=== PATIENT | male | born 1965 | race Two or more races ===

== ENCOUNTER → 2024-03-14 | Outpatient (CLI) | payer MEDICAID, SELFPAY ==
--- NOTE | 2024-03-14 10:26 | XR_ITS ---
Examination: PA lateral chest 2 views TECHNIQUE: Upright PA lateral chest 2 views Exam date and time: March 14, 2024 INDICATIONS: Clinical diagnosis tuberculosis FINDINGS: Interstitial parenchymal disease left base obscuring detail posterior portion left hemidiaphragm Right lung clear Normal heart size IMPRESSION: Tuberculosis cannot be excluded based on this chest x-ray, recommend CT chest without contrast follow-up
== END | disposition home or self-care (01) ==
DX: Z11.1 Encounter for screening for respiratory tuberculosis (principal)
CPT/HCPCS: 71046

== ENCOUNTER 2024-11-27 23:00 | Emergency (ER) | payer MEDICAID, SELFPAY ==
[2024-11-27 23:02] VITALS: BMI 25.0
[2024-11-27 23:16] VITALS: BP 134/68; PULSE 87; RESP 20; TEMP 37.3; O2SAT 95
--- NOTE | 2024-11-27 23:41 | XR_ITS ---
Examination: CT abdomen with intravenous contrast CT pelvis with intravenous contrast 2-D coronal reconstructions 2-D sagittal reconstructions Date and time of exam:November, 0356 hours INDICATIONS: Abdominal pain and bloating beginning 3 weeks ago.. CTDI: vol (mGy) 8.13. DLP: (mGycm) 525. Technique: Multiple axial sections of the abdomen and pelvis have been obtained. 64 slice high-resolution scanner used. 3 mm axial sections have been obtained, post intravenous injection 60 cc Isovue 370. 2-D sagittal, coronal reconstructions obtained. Low dose protocols were performed. One or more of the following dose reduction techniques were used; automated exposure control, adjustment of the mA and/or KV according to patient size, use of iterative reconstruction technique. Findings: Atelectasis in the right lower lung zone. Cirrhosis, liver nodular in contour Significant ascites. Prominent splenomegaly. Esophageal varices. Perigastric varices. Portosystemic collateral vessels medial to the spleen. There is extrahepatic biliary tract dilatation, common bile duct 12 mm No pancreatic mass. Atrophic kidneys, no hydronephrosis Aorta normal size. No bowel obstruction. No significant prostatomegaly. Degenerative changes lumbar spine Small umbilical hernia Fluid-containing right inguinal hernia IMPRESSION: Cirrhosis Esophageal and perigastric varices. Prominent ascites. Extrahepatic biliary duct dilatation, consider MRCP follow-up
--- NOTE | 2024-11-27 23:47 | PD.EDABDPN ---
ED Abdominal Pain RME/HPI General Chief Complaint: Abdominal Pain Stated complaint: BLOATED ABD PAIN Time seen by provider: 11/27/24 23:32 Arrival date/time: 11/27/24 23:00 59M with no known PMH (patient doesn't go to doctors and appears to be homeless) presents to ED with several weeks of worsening ab bloating. Mostly normal intake/output. 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 Limitations: no limitations Related Data Home Medications ?Medication ?Instructions ?Recorded ?Confirmed methadone 40 mg soluble tablet 68 mg PO QDAY 10/22/20 10/22/20 Allergies Allergy/AdvReac Type Severity Reaction Status Date / Time No Known Allergies Allergy Verified 11/27/24 23:09 Review of Systems Review of Systems Systems Reviewed: All systems reviewed, normal except as documented Constitutional Constitutional: Reports system reviewed and no additional complaints, except as documented, Denies fever(s) and Denies headache(s) ENT Ears, Nose, Mouth, and Throat: Denies disequilibrium and Denies headache(s) Cardiovascular Cardiovascular: Reports system reviewed and no additional complaints, except as documented, Denies chest pain and Denies dyspnea Respiratory Respiratory: Reports system reviewed and no additional complaints, except as documented, Denies cough and Denies dyspnea Gastrointestinal Gastrointestinal: Reports system reviewed and no additional complaints, except as documented, Reports as per HPI, Denies abdominal pain, Reports bloating, Denies nausea and Denies vomiting Neurologic Neurologic: Reports system reviewed and no additional complaints, except as documented, Denies confusion, Denies disequilibrium and Denies headache(s) Psychiatric Psychiatric: Denies confusion Past Medical History Past Medical History CARDIAC: Negative Congestive Heart Failure RESPIRATORY: Negative Chronic Obstructive Pulmonary Disease (COPD) GENITOURINARY: Negative Renal Disease ENDOCRINE: Negative Diabetes Mellitus Type 1 or Diabetes Mellitus Type 2 Social History SMOKING STATUS: Current every day smoker ED Exam General Limitations: Present no limitations General appearance: Present alert and in no apparent distress Head Head exam: Present atraumatic Eye Eye exam: Present normal appearance, PERRL and EOMI ENT ENT exam: Present normal exam, normal oropharynx and mucous membranes moist Neck Neck exam: Present normal inspection, full ROM and trachea midline Chest Chest inspection: Present normal inspection and symmetric chest wall rise Respiratory Respiratory exam: Present normal lung sounds bilaterally Cardiovascular Cardiovascular exam: Present regular rate, normal rhythm and normal heart sounds Abdominal Exam Abdominal exam: Present soft, distention and normal bowel sounds Extremities Exam Extremities exam: Present normal inspection and full ROM Back Exam Back exam: Present normal inspection and full ROM Neurological Exam Neurological exam: Present alert, oriented X3 and CN II-XII intact Psychiatric Psychiatric exam: Present normal affect and normal mood Skin Skin exam: Present warm, dry, intact and normal color Course Quality Measures none Orders Category Date Time Status CT Screening NOW Care 11/27/24 23:41 Completed Insert IV NOW Care 11/27/24 23:41 Completed MRI Screening NOW Care 11/28/24 05:[address] abdomen pelvis w con Stat Exams 11/27/24 23:41 Completed MR MRCP Stat Exams 11/28/24 Completed US paracentesis abd w/image Stat Exams 11/28/24 05:13 Completed Albumin, Peritoneal Fluid Routine Lab 11/28/24 14:34 Completed Alcohol, Blood Medical Stat Lab 11/27/24 23:41 Completed Amylase,Peritoneal Fluid Routine Lab 11/28/24 14:34 Completed CBC Stat Lab 11/27/24 23:41 Completed CMP [Comprehensive Metabolic Panel] Stat Lab 11/27/24 23:41 Completed Drug Screen,Urine Stat Lab 11/28/24 01:29 Completed Glucose,Peritoneal Fluid Routine Lab 11/28/24 14:34 Completed INR [Prothrombin Time with INR] Stat Lab 11/27/24 23:41 Completed LDH,Peritoneal Fluid Routine Lab 11/28/24 14:34 Completed Lactate (Lactic Acid) Stat Lab 11/27/24 23:50 Completed Lipase Stat Lab 11/27/24 23:41 Completed PLATELETS [Pheresis Platelets] Stat Lab 11/28/24 05:30 Completed PTT [Partial Thromboplastin Time] Stat Lab 11/27/24 23:41 Completed Path Review Blood Smear Stat Lab 11/28/24 01:00 Completed Peritoneal Cell Cnt/Diff Routine Lab 11/28/24 14:34 Completed Procalcitonin Stat Lab 11/27/24 23:41 Completed Protein Total,Peritoneal Fluid Routine Lab 11/28/24 14:34 Completed Type and Screen Stat Lab 11/28/24 05:30 Completed Albumin Human 25% Ivpb [Albuminar-25 Ivpb] Med 11/28/24 15:00 Discontinued 25 gm in 100 ml IV Q1H Lidocaine 1% Pf 30 ml [Xylocaine 1% Pf 30 ml] Med 11/28/24 12:28 Discontinued 30 ml .ROUTE .STK-MED ONE Vital Signs Vital signs: Vital Signs Temperature 99.1 F 11/27/24 23:16 Pulse Rate 87 11/27/24 23:16 Respiratory Rate 20 11/27/24 23:16 Blood Pressure 134/68 H 11/27/24 23:16 Pulse Oximetry (%) 95 11/27/24 23:16 Oxygen Delivery Method Room Air 11/27/24 23:16 O2 at 95% on RA and WNLs Abdominal Pain MDM MDM Narrative MDM Narrative:: 59M with no known PMH (patient doesn't go to doctors and appears to be homeless) presents to ED with several weeks of worsening ab bloating. Mostly normal intake/output. 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 Physical exam reveals ab bloating, but no obvious tenderness. Patient is afebrile, calm, and alert. CT reveals marked ascites and varices (no active bleeding), which enlarged CBD. No leukocytosis. Moderate anemia. Platelets 40 (1 unit given). Mildly elevated coags. CMP mild bili elevation. Lipase normal. Care signed out to Dr. Goetz pending MRCP and paracentesis. Eventually, patient got para, no stone in CBD, and subsequent albumin due to >8 L drained. Ascites liquid analyzed. Patient data External records reviewed:: [facility] previous records Clinical information provided by:: patient Social determinants that could affect healthcare access:: substance use Patient has the following chronic illnesses:: alcohol/drug How is presenting disease/condition affected by chronic disease/condition?: exacerbated by Evaluation data The following diagnostics were reviewed and interpreted by me:: lab results and radiology exam(s) Lab and/or radiology exams considered but not ordered:: ordered Interpretation Summary: above Medications / Prescriptions Medications or Prescriptions considered but not ordered:: irdered Medication administrations:: Medication Administration History Discontinued Medications Albumin Human (Albuminar-25 Ivpb) 25 gm in 100 mls @ 100 mls/hr IV Q1H JAYNE Stop: 11/28/24 16:59 Last Infusion: 11/28/24 17:50 Dose: Infused Documented By: Admin: 11/28/24 16:42 Dose: 100 mls/hr Documented By: Infusion: 11/28/24 16:41 Dose: Infused Documented By: Admin: 11/28/24 15:14 Dose: 100 mls/hr Documented By: AARON Lidocaine HCl (Lidocaine Inj Pf 1% 30 Ml Vial) Confirm Administered Dose 30 ml .ROUTE .STK-MED ONE Stop: 11/28/24 12:29 Last Admin: 11/28/24 15:19 Dose: Not Given Documented By: AARON Non-Admin Reason: Discontinued above Consultations Consultation(s) initiated? (list below): No Diagnosis Differential diagnosis abdominal pain: abdominal pain, acute appendicitis, calculus of kidney, constipation, diverticulitis, endometriosis, gastroenteritis, pancreatitis, small bowel obstruction and other (ascites and cirrhosis) Most likely diagnosis given after review of the tests above:: ascites and cirrhosis Admission Indicated Admission indicated?: not indicated Admission Request Was there a request for admission?: No Disposition Plan Disposition Plan: Discharge Discharge Attestation Discharge Attestation: The patient and all family members were given an opportunity to ask questions and understood the discharge instructions. Discharge instructions specifically effects, indications for sooner follow up or return to the emergency department, and the expected course of current diagnosis. Patient condition: Stable Discharge Plan Plan Patient Disposition: HOME (Self Care) Prescriptions/Referrals Prescriptions/Med Rec: No Action methadone 40 mg Tablet,Soluble 68 mg PO QDAY Referrals: No Primary/Family,Physician [Primary Care Provider] - In 1 week Problem List Clinical Impression: Liver cirrhosis, Abdominal ascites Patient/Caregiver Discharge Instructions Education Materials: Paracentesis, ED Ascites, ED Cirrhosis Additional Instructions: Follow up with your primary care doctor for further management of cirrhosis Print Language: Romansh Stand Alone Forms: Leandra Award Info., Patient Portal Info Letter
[2024-11-28] VITALS (13 sets, daily range): BP systolic 97–154; BP diastolic 43–91; PULSE 62–79; RESP 12–18; TEMP 36.3–37; O2SAT 96–100
--- NOTE | 2024-11-28 | XR_ITS ---
MRI abdomen, without contrast. MRCP Date and time of exam: November 28, 2024, 0737 hours INDICATIONS: Abdominal pain and distention this week, biliary tract dilatation on CT abdomen and pelvis November 28, 2024 Technique: Multiple axial and coronal images of the abdomen have been obtained with the Siemens 1.5T MRI scanner. Images obtained included T1 weighted transverse images, T2-weighted transverse images, T2-weighted transverse images fat-suppressed, T2 weighted haste fat suppressed transverse images, T1 weighted images, in and out of phase images, T2-weighted coronal images, breath hold, T2 weighted haze coronal images as well as T2 weighted coronal thick slab images, MRCP. Findings: Cirrhosis, liver lobular in contour Marked ascites Prominent splenomegaly Contracted gallbladder Enlarged common hepatic common bile duct 8 mm No definite extrahepatic stones No hydronephrosis Aorta normal size. Impression : Cirrhosis, significant splenomegaly Marked ascites Enlarged common bile duct 8 mm no definite common hepatic or common bile duct stones
[2024-11-28 01:07] LABS: Lactate (Lactic Acid) 1.4 mMol/L (0.4-2.0)
[2024-11-28 01:10] LABS: Basophils # (Auto) 0.0 Thou/mm3 (0.0-0.2); Basophils % (Auto) 1 % (0-2.5); Eosinophils # (Auto) 0.2 Thou/mm3 (0.0-0.5); Eosinophils % (Auto) 4 % (0-10); Hematocrit 30.7 % (41.0-53.0); Hemoglobin 9.7 g/dL (13.5-16.0); Immature Granulocytes Auto 0.01 Thou/mm3 (0.00-0.00); Lymphocytes # (Auto) 0.7 Thou/mm3 (1.0-4.8); Lymphocytes % (Auto) 15 % (10-50); Mean Corpuscular HGB Conc 31.6 g/dl (31.0-37.0); Mean Corpuscular Hemoglobin 26.6 pg (25.0-35.0); Mean Corpuscular Volume 84 fL (80-100); Monocytes # (Auto) 0.3 Thou/mm3 (0.0-0.8); Monocytes % (Auto) 7 % (0-12); Neutrophils # (Auto) 3.4 Thou/mm3 (1.8-7.7); Neutrophils % (Auto) 73 % (37-80); Nucleated Red Blood Cell # 0.00 Thou/mm3 (0.00-0.00); Nucleated Red Blood Cell % 0 /100 WBC (0); RDW Standard Deviation 61.2 fL (35.1-43.9); Red Blood Count 3.65 Miln/mm3 (4.50-5.90); White Blood Count 4.7 Thou/mm3 (3.8-10.6)
[2024-11-28 01:16] LABS: Platelet Count 40 Thou/mm3 (140-440)
[2024-11-28 01:17] LABS: Slide Review Platelets confirmed
[2024-11-28 01:28] LABS: INR 1.3 (0.9-1.3); Partial Thromboplastin Time 24.2 Seconds (22.0-36.0); Prothrombin Time 13.6 Seconds (9.0-12.2)
[2024-11-28 01:48] LABS: Alanine Aminotransferase 16 U/L (10-49); Albumin, Serum 3.2 gm/dL (3.4-4.8); Albumin/Globulin Ratio 0.9 (1.2-2.2); Alcohol, Blood Medical < 3.0 mg/dL (0-10.0); Alkaline Phosphatase 67 U/L (46-116); Anion Gap 6 (7-16); Aspartate Amino Transferase 43 U/L (0-34); BUN/Creatinine Ratio 15 Ratio (12-20); Bilirubin,Total 1.7 mg/dL (0.3-1.2); Blood Urea Nitrogen 15 mg/dL (9-23); Calcium 8.3 mg/dL (8.3-10.6); Calcium (Corrected) 8.9 mg/dL (8.5-10.1); Carbon Dioxide 25.8 mMol/L (20.0-31.0); Chloride 106 mMol/L (98-107); Creatinine (Component) 1.0 mg/dL (0.6-1.3); Estimated Creatinine Clearance 68.3 mL/min (>60); Globulin 3.7 gm/dL (2.3-3.5); Glucose 124 mg/dL (74-106); Lipase 25 U/L (12-53); Osmolality,Calculated 277 (275-295); Potassium 4.2 mMol/L (3.4-5.1); Procalcitonin 0.08 ng/ml (0.0-0.49); Sodium 138 mMol/L (136-145); Total Protein 6.9 gm/dL (5.7-8.2); eGFR > 60 See Note
[2024-11-28 03:00] LABS: Amphetamine/Methamp Scrn,U Negative (Negative); Barbiturate Screen,Urine Negative (Negative); Benzodiazepines Screen,Urine Negative (Negative); Benzoylecgonine Screen, Ur Negative (Negative); Fentanyl Screen,Urine Negative (Negative); Opiate Screen,Urine Positive (Negative); THC Screen,Urine Negative (Negative)
[2024-11-28 04:39] LABS: Path Review Blood Smear Sent to Pathologist
--- NOTE | 2024-11-28 05:09 | PRELIM_ITS ---
CT scan of the abdomen and pelvis with intravenous contrast (axial sections with sagittal and coronal reformats) November 28, 2024 0356 hours Clinical History: Abdominal bloating. Comparison: No prior study is available for comparison. Findings: Lung bases:- Unremarkable. Liver:- The liver demonstrates a nodular contour, which may represent cirrhosis. Multiple portosystemic collaterals are seen in the upper abdomen and gastroesophageal region. Gallbladder/Biliary system:- Gallbladder is distended.Mild intra and extrahepatic biliary ductal dilatation. The common bile duct measuresup to 14 mm in maximum caliber. Spleen:- The spleen is moderately enlarged, measuring 19 cm. Pancreas:- Unremarkable. Adrenals:- Unremarkable. Kidneys/Urinary bladder:- Unremarkable. Bowel:- Unremarkable. Mesentery/Peritoneum:- There is marked ascites. Aorta:- Unremarkable. Retroperitoneum:- Unremarkable. Pelvis:- Unremarkable. Osseous Structures:- Degenerative changes are identified in the spine. There is osteopenia. Abdominal wall:- A small fat-containing umbilical hernia is present. There is anasarca. Impression: 1. Cirrhosis of the liver with portal hypertension and marked ascites. 2. Mild intra and extrahepatic biliary ductal dilatation. Suggest clinical correlation and further evaluation with sonography or MRCP, if clinically indicated. 3. Other findings as described above. Report Electronically Signed By: Teresita Rosario 11/28/2024 5:09:26 AM [EST]
--- NOTE | 2024-11-28 05:13 | XR_ITS ---
Examination: Ultrasound-guided paracentesis Abdominal sonogram limited Date and time of exam: November 28, 2024 1235 hours INDICATIONS: Cirrhosis increasing ascites and abdominal distention this week Informed consent provided. A timeout was completed verifying correct patient, procedure, site, positioning, and special adequate movement if applicable. Technique: Multiple sonographic images of the abdomen have been obtained. Appropriate area for paracentesis was marked. Local anesthesia is obtained with 1% lidocaine. Yueh catheter is successfully introduced. Findings: Abdominal sonographic images demonstrate sufficient ascitic fluid for paracentesis. After placing the Yueh catheter, 8125 cc of fluid were successfully removed. During and after completion of the procedure the patient appear in satisfactory and stable condition with no complications observed. Estimated blood loss 0 cc Impression: Abdominal ascites Successful ultrasound-guided paracentesis as described above
--- NOTE | 2024-11-28 05:40 | PC.NURSE ---
THIS RN RECEIVED PATIENT AT HANDOFF WITH AN INFILTRATED IV TO THE LEFT BICEP. HANDOFF RN AT BEDSIDE ATTEMPTING NEW ULTRASOUND GUIDED IV ON RIGHT BICEP. PATIENT DENYING ANY PAIN OR DISCOMFORT.
--- NOTE | 2024-11-28 06:27 | PD.EDADDENDU ---
Emergency Room Addendum <Lanette Saunders - Last Filed: 11/29/24 10:04> Addendum Narrative: 0600: Care assumed from Dr. Prieto, the previous shift emergency physician. Past medical, surgical, social and family history reviewed. Vitals and home medications reviewed. I will assume the care of the patient at this time, pending MRCP, US paracentesis, and final disposition. Please refer to the emergency department record for history and examination from initial visit.? Physical exam by me shows patient under no acute distress at this time. Patient had ultrasound guided paracentesis. >8L ascitic fluid removed. Albumin IV ordered. Fluid studies ordered Peritoneal fluid: Peritoneal Color Yellow 11/28/24 14:34 Peritoneal Appearance Hazy 11/28/24 14:34 Peritoneal WBC 286 /cmm 11/28/24 14:34 Peritoneal [place] 48282 /cmm 11/28/24 14:34 Periton Polynucl WBCs 5 % 11/28/24 14:34 Periton Mononucl WBCs 95 % 11/28/24 14:34 Peritoneal Tot Protein < 2 g/dL 11/28/24 14:34 Peritoneal Albumin < 1.0 gm/dL 11/28/24 14:34 Peritoneal LDH 57 IU/L 11/28/24 14:34 Peritoneal Glucose 113 mg/dL 11/28/24 14:34 Peritoneal Amylase < 20 IU/L 11/28/24 14:34 Findings consistent with transudate (protein <2 g/dL). Serum albumin ascites gradient >1.1 consistent with cirrhosis. WBC<300 interpreted as within normal limits. Patient states he has a new PCP and plans to go directly to the clinic to make his follow up appointment. 1645: Patient will be discharged. Diagnoses: - Liver cirrhosis - Abdominal ascites <Lolly Goetz MD - Last Filed: 11/28/24 16:50> Addendum Narrative: 0600: Care assumed from Dr. Prieto, the previous shift emergency physician. Past medical, surgical, social and family history reviewed. Vitals and home medications reviewed. I will assume the care of the patient at this time, pending MRCP, US paracentesis, and final disposition. Please refer to the emergency department record for history and examination from initial visit.? Physical exam by me shows patient under no acute distress at this time. Patient had ultrasound guided paracentesis. >8L ascitic fluid removed. Albumin IV ordered. Fluid studies ordered Peritoneal fluid: Peritoneal Color Yellow 11/28/24 14:34 Peritoneal Appearance Hazy 11/28/24 14:34 Peritoneal WBC 286 /cmm 11/28/24 14:34 [place]itoneal [place] 80821 /cmm 11/28/24 14:34 Periton Polynucl WBCs 5 % 11/28/24 14:34 Periton Mononucl WBCs 95 % 11/28/24 14:34 Peritoneal Tot Protein < 2 g/dL 11/28/24 14:34 Peritoneal Albumin < 1.0 gm/dL 11/28/24 14:34 Peritoneal LDH 57 IU/L 11/28/24 14:34 Peritoneal Glucose 113 mg/dL 11/28/24 14:34 Peritoneal Amylase < 20 IU/L 11/28/24 14:34 Findings consistent with transudate (protein <2 g/dL). Serum albumin ascites gradient >1.1 consistent with cirrhosis. WBC<300 interpreted as within normal limits. Patient states he has a new PCP and plans to go directly to the clinic to make his follow up appointment. Results <Lanettekita Saunders - Last Filed: 11/29/24 10:04> Objective Laboratory: Laboratory Last Values WBC 4.7 Thou/mm3 (3.8-10.6) 11/28/24 01:00 RBC 3.65 Miln/mm3 (4.50-5.90) L 11/28/24 01:00 Hgb 9.7 g/dL (13.5-16.0) L 11/28/24 01:00 Hct 30.7 % (41.0-53.0) L 11/28/24 01:00 MCV 84 fL (80-100) 11/28/24 01:00 MCH 26.6 pg (25.0-35.0) 11/28/24 01:00 MCHC 31.6 g/dl (31.0-37.0) 11/28/24 01:00 RDW Std Deviation 61.2 fL (35.1-43.9) H 11/28/24 01:00 Plt Count 40 Thou/mm3 (140-440) L 11/28/24 01:00 Neut % (Auto) 73 % (37-80) 11/28/24 01:00 Lymph % (Auto) 15 % (10-50) 11/28/24 01:00 Esmeralda % (Auto) 7 % (0-12) 11/28/24 01:00 Eos % (Auto) 4 % (0-10) 11/28/24 01:00 Baso % (Auto) 1 % (0-2.5) 11/28/24 01:00 Neut # (Auto) 3.4 Thou/mm3 (1.8-7.7) 11/28/24 01:00 Lymph # (Auto) 0.7 Thou/mm3 (1.0-4.8) L 11/28/24 01:00 Esmeralda # (Auto) 0.3 Thou/mm3 (0.0-0.8) 11/28/24 01:00 Eos # (Auto) 0.2 Thou/mm3 (0.0-0.5) 11/28/24 01:00 Baso # (Auto) 0.0 Thou/mm3 (0.0-0.2) 11/28/24 01:00 Immature Gran # (Auto) 0.01 Thou/mm3 (0.00-0.00) H 11/28/24 01:00 Absolute Nucleated RBC 0.00 Thou/mm3 (0.00-0.00) 11/28/24 01:00 Immature Gran % 0 % (0-0) 11/28/24 01:00 Nucleated RBC % 0 /100 WBC (0) 11/28/24 01:00 Smear Path Review Sent to Pathologist 11/28/24 01:00 PT 13.6 Seconds (9.0-12.2) H 11/28/24 01:00 INR 1.3 (0.9-1.3) 11/28/24 01:00 APTT 24.2 Seconds (22.0-36.0) 11/28/24 01:00 Sodium 138 mMol/L (136-145) 11/28/24 01:00 Potassium 4.2 mMol/L (3.4-5.1) 11/28/24 01:00 Chloride 106 mMol/L (98-107) 11/28/24 01:00 Carbon Dioxide 25.8 mMol/L (20.0-31.0) 11/28/24 01:00 Anion Gap 6 (7-16) L 11/28/24 01:00 BUN 15 mg/dL (9-23) 11/28/24 01:00 Creatinine 1.0 mg/dL (0.6-1.3) 11/28/24 01:00 Estim Creat Clear Calc 68.3 mL/min (>60) 11/28/24 01:00 eGFR > 60 See Note (60-) 11/28/24 01:00 BUN/Creatinine Ratio 15 Ratio (12-20) 11/28/24 01:00 Glucose 124 mg/dL (74-106) H 11/28/24 01:00 Calculated Osmolality 277 (275-295) 11/28/24 01:00 Lactic Acid 1.4 mMol/L (0.4-2.0) 11/28/24 01:00 Calcium 8.3 mg/dL (8.3-10.6) 11/28/24 01:00 Corrected Calcium 8.9 mg/dL (8.5-10.1) 11/28/24 01:00 Total Bilirubin 1.7 mg/dL (0.3-1.2) H 11/28/24 01:00 AST 43 U/L (0-34) H 11/28/24 01:00 ALT 16 U/L (10-49) 11/28/24 01:00 Alkaline Phosphatase 67 U/L (46-116) 11/28/24 01:00 Total Protein 6.9 gm/dL (5.7-8.2) 11/28/24 01:00 Albumin 3.2 gm/dL (3.4-4.8) L 11/28/24 01:00 Globulin 3.7 gm/dL (2.3-3.5) H 11/28/24 01:00 Albumin/Globulin Ratio 0.9 (1.2-2.2) L 11/28/24 01:00 Lipase 25 U/L (12-53) 11/28/24 01:00 Procalcitonin 0.08 ng/ml (0.0-0.49) 11/28/24 01:00 Urine Opiates Screen Positive (Negative) A 11/28/24 01:29 Urine Fentanyl Screen Negative (Negative) 11/28/24 01:29 Ur Barbiturates Screen Negative (Negative) 11/28/24 01:29 U Amphetamin/Meth Scrn Negative (Negative) 11/28/24 01:29 U Benzodiazepines Scrn Negative (Negative) 11/28/24 01:29 U Cocaine Metab Screen Negative (Negative) 11/28/24 01:29 U Marijuana (THC) Screen Negative (Negative) 11/28/24 01:29 Ethyl Alcohol < 3.0 mg/dL (0-10.0) 11/28/24 01:00 Misc Test Result Platelets confirmed 11/28/24 01:00 Blood Type O Positive 11/28/24 05:30 Antibody Screen NEGATIVE 11/28/24 05:30 Blood Bank Wristband ID Yes 11/28/24 05:30 Blood Bank Comment PLATP Ready 11/28/24 05:30 Imaging: Procedure(s): MR MRCP Accession Number(s): [id number] cc: Alexx Yates MD; NO PRIMARY/FAMILY,PHYSICIAN; Pankaj Ochoa PA-C~ MRI abdomen, without contrast. MRCP Date and time of exam: November 28, 2024, 0737 hours INDICATIONS: Abdominal pain and distention this week, biliary tract dilatation on CT abdomen and pelvis November 28, 2024 Technique: Multiple axial and coronal images of the abdomen have been obtained with the Siemens 1.5T MRI scanner. Images obtained included T1 weighted transverse images, T2-weighted transverse images, T2-weighted transverse images fat-suppressed, T2 weighted haste fat suppressed transverse images, T1 weighted images, in and out of phase images, T2-weighted coronal images, breath hold, T2 weighted haze coronal images as well as T2 weighted coronal thick slab images, MRCP. Findings: Cirrhosis, liver lobular in contour Marked ascites Prominent splenomegaly Contracted gallbladder Enlarged common hepatic common bile duct 8 mm No definite extrahepatic stones No hydronephrosis Aorta normal size. Impression : Cirrhosis, significant splenomegaly Marked ascites Enlarged common bile duct 8 mm no definite common hepatic or common bile duct stones Dictated By: Alexx Yates MD <Lolly Goetz MD - Last Filed: 11/28/24 16:50> Objective Laboratory: Laboratory Last Values WBC 4.7 Thou/mm3 (3.8-10.6) 11/28/24 01:00 RBC 3.65 Miln/mm3 (4.50-5.90) L 11/28/24 01:00 Hgb 9.7 g/dL (13.5-16.0) L 11/28/24 01:00 Hct 30.7 % (41.0-53.0) L 11/28/24 01:00 MCV 84 fL (80-100) 11/28/24 01:00 MCH 26.6 pg (25.0-35.0) 11/28/24 01:00 MCHC 31.6 g/dl (31.0-37.0) 11/28/24 01:00 RDW Std Deviation 61.2 fL (35.1-43.9) H 11/28/24 01:00 Plt Count 40 Thou/mm3 (140-440) L 11/28/24 01:00 Neut % (Auto) 73 % (37-80) 11/28/24 01:00 Lymph % (Auto) 15 % (10-50) 11/28/24 01:00 Esmeralda % (Auto) 7 % (0-12) 11/28/24 01:00 Eos % (Auto) 4 % (0-10) 11/28/24 01:00 Baso % (Auto) 1 % (0-2.5) 11/28/24 01:00 Neut # (Auto) 3.4 Thou/mm3 (1.8-7.7) 11/28/24 01:00 Lymph # (Auto) 0.7 Thou/mm3 (1.0-4.8) L 11/28/24 01:00 Esmeralda # (Auto) 0.3 Thou/mm3 (0.0-0.8) 11/28/24 01:00 Eos # (Auto) 0.2 Thou/mm3 (0.0-0.5) 11/28/24 01:00 Baso # (Auto) 0.0 Thou/mm3 (0.0-0.2) 11/28/24 01:00 Immature Gran # (Auto) 0.01 Thou/mm3 (0.00-0.00) H 11/28/24 01:00 Absolute Nucleated RBC 0.00 Thou/mm3 (0.00-0.00) 11/28/24 01:00 Immature Gran % 0 % (0-0) 11/28/24 01:00 Nucleated RBC % 0 /100 WBC (0) 11/28/24 01:00 Smear Path Review Sent to Pathologist 11/28/24 01:00 PT 13.6 Seconds (9.0-12.2) H 11/28/24 01:00 INR 1.3 (0.9-1.3) 11/28/24 01:00 APTT 24.2 Seconds (22.0-36.0) 11/28/24 01:00 Sodium 138 mMol/L (136-145) 11/28/24 01:00 Potassium 4.2 mMol/L (3.4-5.1) 11/28/24 01:00 Chloride 106 mMol/L (98-107) 11/28/24 01:00 Carbon Dioxide 25.8 mMol/L (20.0-31.0) 11/28/24 01:00 Anion Gap 6 (7-16) L 11/28/24 01:00 BUN 15 mg/dL (9-23) 11/28/24 01:00 Creatinine 1.0 mg/dL (0.6-1.3) 11/28/24 01:00 Estim Creat Clear Calc 68.3 mL/min (>60) 11/28/24 01:00 eGFR > 60 See Note (60-) 11/28/24 01:00 BUN/Creatinine Ratio 15 Ratio (12-20) 11/28/24 01:00 Glucose 124 mg/dL (74-106) H 11/28/24 01:00 Calculated Osmolality 277 (275-295) 11/28/24 01:00 Lactic Acid 1.4 mMol/L (0.4-2.0) 11/28/24 01:00 Calcium 8.3 mg/dL (8.3-10.6) 11/28/24 01:00 Corrected Calcium 8.9 mg/dL (8.5-10.1) 11/28/24 01:00 Total Bilirubin 1.7 mg/dL (0.3-1.2) H 11/28/24 01:00 AST 43 U/L (0-34) H 11/28/24 01:00 ALT 16 U/L (10-49) 11/28/24 01:00 Alkaline Phosphatase 67 U/L (46-116) 11/28/24 01:00 Total Protein 6.9 gm/dL (5.7-8.2) 11/28/24 01:00 Albumin 3.2 gm/dL (3.4-4.8) L 11/28/24 01:00 Globulin 3.7 gm/dL (2.3-3.5) H 11/28/24 01:00 Albumin/Globulin Ratio 0.9 (1.2-2.2) L 11/28/24 01:00 Lipase 25 U/L (12-53) 11/28/24 01:00 Procalcitonin 0.08 ng/ml (0.0-0.49) 11/28/24 01:00 Urine Opiates Screen Positive (Negative) A 11/28/24 01:29 Urine Fentanyl Screen Negative (Negative) 11/28/24 01:29 Ur Barbiturates Screen Negative (Negative) 11/28/24 01:29 U Amphetamin/Meth Scrn Negative (Negative) 11/28/24 01:29 U Benzodiazepines Scrn Negative (Negative) 11/28/24 01:29 U Cocaine Metab Screen Negative (Negative) 11/28/24 01:29 U Marijuana (THC) Screen Negative (Negative) 11/28/24 01:29 Ethyl Alcohol < 3.0 mg/dL (0-10.0) 11/28/24 01:00 Misc Test Result Platelets confirmed 11/28/24 01:00 Blood Type O Positive 11/28/24 05:30 Antibody Screen NEGATIVE 11/28/24 05:30 Blood Bank Wristband ID Yes 11/28/24 05:30 Blood Bank Comment PLATP Ready 11/28/24 05:30 LTC - Results <Lanette Saunders - Last Filed: 11/29/24 10:04> Labs Labs: Laboratory Last Values WBC 4.7 Thou/mm3 (3.8-10.6) 11/28/24 01:00 RBC 3.65 Miln/mm3 (4.50-5.90) L 11/28/24 01:00 Hgb 9.7 g/dL (13.5-16.0) L 11/28/24 01:00 Hct 30.7 % (41.0-53.0) L 11/28/24 01:00 MCV 84 fL (80-100) 11/28/24 01:00 MCH 26.6 pg (25.0-35.0) 11/28/24 01:00 MCHC 31.6 g/dl (31.0-37.0) 11/28/24 01:00 RDW Std Deviation 61.2 fL (35.1-43.9) H 11/28/24 01:00 Plt Count 40 Thou/mm3 (140-440) L 11/28/24 01:00 Neut % (Auto) 73 % (37-80) 11/28/24 01:00 Lymph % (Auto) 15 % (10-50) 11/28/24 01:00 Esmeralda % (Auto) 7 % (0-12) 11/28/24 01:00 Eos % (Auto) 4 % (0-10) 11/28/24 01:00 Baso % (Auto) 1 % (0-2.5) 11/28/24 01:00 Neut # (Auto) 3.4 Thou/mm3 (1.8-7.7) 11/28/24 01:00 Lymph # (Auto) 0.7 Thou/mm3 (1.0-4.8) L 11/28/24 01:00 Esmeralda # (Auto) 0.3 Thou/mm3 (0.0-0.8) 11/28/24 01:00 Eos # (Auto) 0.2 Thou/mm3 (0.0-0.5) 11/28/24 01:00 Baso # (Auto) 0.0 Thou/mm3 (0.0-0.2) 11/28/24 01:00 Immature Gran # (Auto) 0.01 Thou/mm3 (0.00-0.00) H 11/28/24 01:00 Absolute Nucleated RBC 0.00 Thou/mm3 (0.00-0.00) 11/28/24 01:00 Immature Gran % 0 % (0-0) 11/28/24 01:00 Nucleated RBC % 0 /100 WBC (0) 11/28/24 01:00 Smear Path Review Sent to Pathologist 11/28/24 01:00 PT 13.6 Seconds (9.0-12.2) H 11/28/24 01:00 INR 1.3 (0.9-1.3) 11/28/24 01:00 APTT 24.2 Seconds (22.0-36.0) 11/28/24 01:00 Sodium 138 mMol/L (136-145) 11/28/24 01:00 Potassium 4.2 mMol/L (3.4-5.1) 11/28/24 01:00 Chloride 106 mMol/L (98-107) 11/28/24 01:00 Carbon Dioxide 25.8 mMol/L (20.0-31.0) 11/28/24 01:00 Anion Gap 6 (7-16) L 11/28/24 01:00 BUN 15 mg/dL (9-23) 11/28/24 01:00 Creatinine 1.0 mg/dL (0.6-1.3) 11/28/24 01:00 Estim Creat Clear Calc 68.3 mL/min (>60) 11/28/24 01:00 eGFR > 60 See Note (60-) 11/28/24 01:00 BUN/Creatinine Ratio 15 Ratio (12-20) 11/28/24 01:00 Glucose 124 mg/dL (74-106) H 11/28/24 01:00 Calculated Osmolality 277 (275-295) 11/28/24 01:00 Lactic Acid 1.4 mMol/L (0.4-2.0) 11/28/24 01:00 Calcium 8.3 mg/dL (8.3-10.6) 11/28/24 01:00 Corrected Calcium 8.9 mg/dL (8.5-10.1) 11/28/24 01:00 Total Bilirubin 1.7 mg/dL (0.3-1.2) H 11/28/24 01:00 AST 43 U/L (0-34) H 11/28/24 01:00 ALT 16 U/L (10-49) 11/28/24 01:00 Alkaline Phosphatase 67 U/L (46-116) 11/28/24 01:00 Total Protein 6.9 gm/dL (5.7-8.2) 11/28/24 01:00 Albumin 3.2 gm/dL (3.4-4.8) L 11/28/24 01:00 Globulin 3.7 gm/dL (2.3-3.5) H 11/28/24 01:00 Albumin/Globulin Ratio 0.9 (1.2-2.2) L 11/28/24 01:00 Lipase 25 U/L (12-53) 11/28/24 01:00 Procalcitonin 0.08 ng/ml (0.0-0.49) 11/28/24 01:00 Peritoneal Color Yellow 11/28/24 14:34 Peritoneal Appearance Hazy 11/28/24 14:34 Peritoneal WBC 286 /cmm 11/28/24 14:34 Peritoneal RBC 38022 /cmm 11/28/24 14:34 Periton Polynucl WBCs 5 % 11/28/24 14:34 Periton Mononucl WBCs 95 % 11/28/24 14:34 Peritoneal Tot Protein < 2 g/dL 11/28/24 14:34 Peritoneal Albumin < 1.0 gm/dL 11/28/24 14:34 Peritoneal LDH 57 IU/L 11/28/24 14:34 Peritoneal Glucose 113 mg/dL 11/28/24 14:34 Peritoneal Amylase < 20 IU/L 11/28/24 14:34 Urine Opiates Screen Positive (Negative) A 11/28/24 01:29 Urine Fentanyl Screen Negative (Negative) 11/28/24 01:29 Ur Barbiturates Screen Negative (Negative) 11/28/24 01:29 U Amphetamin/Meth Scrn Negative (Negative) 11/28/24 01:29 U Benzodiazepines Scrn Negative (Negative) 11/28/24 01:29 U Cocaine Metab Screen Negative (Negative) 11/28/24 01:29 U Marijuana (THC) Screen Negative (Negative) 11/28/24 01:29 Ethyl Alcohol < 3.0 mg/dL (0-10.0) 11/28/24 01:00 Misc Test Result Platelets confirmed 11/28/24 01:00 Blood Type O Positive 11/28/24 05:30 Antibody Screen NEGATIVE 11/28/24 05:30 Blood Bank Wristband ID Yes 11/28/24 05:30 Blood Bank Comment PLATP Ready 11/28/24 05:30 <Lolly Goetz MD - Last Filed: 11/28/24 16:50> Labs Labs: Laboratory Last Values WBC 4.7 Thou/mm3 (3.8-10.6) 11/28/24 01:00 RBC 3.65 Miln/mm3 (4.50-5.90) L 11/28/24 01:00 Hgb 9.7 g/dL (13.5-16.0) L 11/28/24 01:00 Hct 30.7 % (41.0-53.0) L 11/28/24 01:00 MCV 84 fL (80-100) 11/28/24 01:00 MCH 26.6 pg (25.0-35.0) 11/28/24 01:00 MCHC 31.6 g/dl (31.0-37.0) 11/28/24 01:00 RDW Std Deviation 61.2 fL (35.1-43.9) H 11/28/24 01:00 Plt Count 40 Thou/mm3 (140-440) L 11/28/24 01:00 Neut % (Auto) 73 % (37-80) 11/28/24 01:00 Lymph % (Auto) 15 % (10-50) 11/28/24 01:00 Esmeralda % (Auto) 7 % (0-12) 11/28/24 01:00 Eos % (Auto) 4 % (0-10) 11/28/24 01:00 Baso % (Auto) 1 % (0-2.5) 11/28/24 01:00 Neut # (Auto) 3.4 Thou/mm3 (1.8-7.7) 11/28/24 01:00 Lymph # (Auto) 0.7 Thou/mm3 (1.0-4.8) L 11/28/24 01:00 Esmeralda # (Auto) 0.3 Thou/mm3 (0.0-0.8) 11/28/24 01:00 Eos # (Auto) 0.2 Thou/mm3 (0.0-0.5) 11/28/24 01:00 Baso # (Auto) 0.0 Thou/mm3 (0.0-0.2) 11/28/24 01:00 Immature Gran # (Auto) 0.01 Thou/mm3 (0.00-0.00) H 11/28/24 01:00 Absolute Nucleated RBC 0.00 Thou/mm3 (0.00-0.00) 11/28/24 01:00 Immature Gran % 0 % (0-0) 11/28/24 01:00 Nucleated RBC % 0 /100 WBC (0) 11/28/24 01:00 Smear Path Review Sent to Pathologist 11/28/24 01:00 PT 13.6 Seconds (9.0-12.2) H 11/28/24 01:00 INR 1.3 (0.9-1.3) 11/28/24 01:00 APTT 24.2 Seconds (22.0-36.0) 11/28/24 01:00 Sodium 138 mMol/L (136-145) 11/28/24 01:00 Potassium 4.2 mMol/L (3.4-5.1) 11/28/24 01:00 Chloride 106 mMol/L (98-107) 11/28/24 01:00 Carbon Dioxide 25.8 mMol/L (20.0-31.0) 11/28/24 01:00 Anion Gap 6 (7-16) L 11/28/24 01:00 BUN 15 mg/dL (9-23) 11/28/24 01:00 Creatinine 1.0 mg/dL (0.6-1.3) 11/28/24 01:00 Estim Creat Clear Calc 68.3 mL/min (>60) 11/28/24 01:00 eGFR > 60 See Note (60-) 11/28/24 01:00 BUN/Creatinine Ratio 15 Ratio (12-20) 11/28/24 01:00 Glucose 124 mg/dL (74-106) H 11/28/24 01:00 Calculated Osmolality 277 (275-295) 11/28/24 01:00 Lactic Acid 1.4 mMol/L (0.4-2.0) 11/28/24 01:00 Calcium 8.3 mg/dL (8.3-10.6) 11/28/24 01:00 Corrected Calcium 8.9 mg/dL (8.5-10.1) 11/28/24 01:00 Total Bilirubin 1.7 mg/dL (0.3-1.2) H 11/28/24 01:00 AST 43 U/L (0-34) H 11/28/24 01:00 ALT 16 U/L (10-49) 11/28/24 01:00 Alkaline Phosphatase 67 U/L (46-116) 11/28/24 01:00 Total Protein 6.9 gm/dL (5.7-8.2) 11/28/24 01:00 Albumin 3.2 gm/dL (3.4-4.8) L 11/28/24 01:00 Globulin 3.7 gm/dL (2.3-3.5) H 11/28/24 01:00 Albumin/Globulin Ratio 0.9 (1.2-2.2) L 11/28/24 01:00 Lipase 25 U/L (12-53) 11/28/24 01:00 Procalcitonin 0.08 ng/ml (0.0-0.49) 11/28/24 01:00 Peritoneal Color Yellow 11/28/24 14:34 Peritoneal Appearance Hazy 11/28/24 14:34 Peritoneal WBC 286 /cmm 11/28/24 14:34 Peritoneal RBC 29951 /cmm 11/28/24 14:34 Periton Polynucl WBCs 5 % 11/28/24 14:34 Periton Mononucl WBCs 95 % 11/28/24 14:34 Peritoneal Tot Protein < 2 g/dL 11/28/24 14:34 Peritoneal Albumin < 1.0 gm/dL 11/28/24 14:34 Peritoneal LDH 57 IU/L 11/28/24 14:34 Peritoneal Glucose 113 mg/dL 11/28/24 14:34 Peritoneal Amylase < 20 IU/L 11/28/24 14:34 Urine Opiates Screen Positive (Negative) A 11/28/24 01:29 Urine Fentanyl Screen Negative (Negative) 11/28/24 01:29 Ur Barbiturates Screen Negative (Negative) 11/28/24 01:29 U Amphetamin/Meth Scrn Negative (Negative) 11/28/24 01:29 U Benzodiazepines Scrn Negative (Negative) 11/28/24 01:29 U Cocaine Metab Screen Negative (Negative) 11/28/24 01:29 U Marijuana (THC) Screen Negative (Negative) 11/28/24 01:29 Ethyl Alcohol < 3.0 mg/dL (0-10.0) 11/28/24 01:00 Misc Test Result Platelets confirmed 11/28/24 01:00 Blood Type O Positive 11/28/24 05:30 Antibody Screen NEGATIVE 11/28/24 05:30 Blood Bank Wristband ID Yes 11/28/24 05:30 Blood Bank Comment PLATP Ready 11/28/24 05:30
--- NOTE | 2024-11-28 07:30 | PC.NURSE ---
Patient GCS 15. No signs of acute distress noted. Patient family member came to see patient and updated and plan of care with patient.
--- NOTE | 2024-11-28 07:34 | PC.NURSE ---
Patient to MRI
--- NOTE | 2024-11-28 12:35 | PC.NURSE ---
Patient to US
[2024-11-28] MEDS: ALBUMIN HUMAN 25% IVPB 25 GM/100 ML BTL IV ×2 (15:14→16:42)
[2024-11-28 15:19] LABS: Peritoneal Fluid WBC 286 /cmm
[2024-11-28 15:28] LABS: Peritoneal Fluid Appearance Hazy; Peritoneal Fluid Color Yellow; Peritoneal Fluid Mononuclear 95 %; Peritoneal Fluid Polynuclear 5 %; RBC,Peritoneal Fluid 12000 /cmm
[2024-11-28 15:33] LABS: Albumin, Peritoneal Fluid < 1.0 gm/dL; Amylase,Peritoneal Fluid < 20 IU/L; Glucose,Peritoneal Fluid 113 mg/dL; LDH,Peritoneal Fluid 57 IU/L; Protein Total,Peritoneal Fluid < 2 g/dL
== END 2024-11-28 18:06 | disposition home or self-care (01) ==
PROVIDERS: Physician Assistant; Emergency Provider Emergency Medicine
DX: K74.60 Unspecified cirrhosis of liver (principal); R18.8 Other ascites; R16.1 Splenomegaly, not elsewhere classified; K83.8 Other specified diseases of biliary tract
CPT/HCPCS: 49083; 36415; 74177; 74181; 80053; 80307; 80320; 82042; 82150; 82945; 83605; 83615; 83690; 84145; 84157; 85025; 85610; 85730; 86850; 86900; 86901; 86965; 89051; 96365; 99284; A4649; C1729; P9035; P9047; Q9967; G0480

== ENCOUNTER 2024-12-05 16:14 | Emergency (ER) | payer MEDICAID, SELFPAY ==
[2024-12-05 16:28] VITALS: BP 113/64; PULSE 84; RESP 18; TEMP 37; O2SAT 95; BMI 23.1
--- NOTE | 2024-12-05 16:36 | PD.EDABDPN ---
ED Abdominal Pain RME/HPI General Chief Complaint: Abdominal Pain Stated complaint: needs Paracentesis per Korina Bashir Time seen by provider: 12/05/24 16:36 Arrival date/time: 12/05/24 16:14 59-year-old male with cirrhosis and abdominal ascites presents to the emergency department today stating that he was sent by PCP for paracentesis currently patient reports no chest pain or shortness of breath Limitations: no limitations Related Data Home Medications ?Medication ?Instructions ?Recorded ?Confirmed methadone 40 mg soluble tablet 68 mg PO QDAY 10/22/20 10/22/20 Allergies Allergy/AdvReac Type Severity Reaction Status Date / Time No Known Allergies Allergy Verified 12/05/24 16:19 Review of Systems Review of Systems Systems Reviewed: All systems reviewed, normal except as documented Constitutional Constitutional: Reports system reviewed and no additional complaints, except as documented, Denies fever(s) and Denies headache(s) Eyes Eyes: Reports system reviewed and no additional complaints, except as documented and Denies blurry vision ENT Ears, Nose, Mouth, and Throat: Reports system reviewed and no additional complaints, except as documented, Denies headache(s), Denies nasal congestion and Denies nasal discharge Cardiovascular Cardiovascular: Reports system reviewed and no additional complaints, except as documented, Denies chest pain and Denies dyspnea Respiratory Respiratory: Reports system reviewed and no additional complaints, except as documented, Denies chest congestion, Denies cough and Denies dyspnea Gastrointestinal Gastrointestinal: Reports system reviewed and no additional complaints, except as documented, Denies abdominal pain and Reports other (Abdominal distention, ascites) Integumentary/Breasts Skin/Breast: Reports system reviewed and no additional complaints, except as documented and Denies rash Neurologic Neurologic: Reports system reviewed and no additional complaints, except as documented, Reports as per HPI and Denies headache(s) Past Medical History Past Medical History CARDIAC: Negative Cardiac Disorders or Congestive Heart Failure RESPIRATORY: Negative Chronic Obstructive Pulmonary Disease (COPD) or Asthma GASTROINTESTINAL: Positive Gastrointestinal Disorders (liver disease) GENITOURINARY: Negative Renal Disease ENDOCRINE: Negative Diabetes Mellitus Type 1 or Diabetes Mellitus Type 2 HEMATOLOGIC: Negative Sickle Cell Disease Social History SMOKING STATUS: Current every day smoker ED Exam General Limitations: Present no limitations General appearance: Present alert and in no apparent distress Head Head exam: Present atraumatic, normocephalic and normal inspection Eye Eye exam: Present normal appearance, PERRL and EOMI; Absent conjunctival injection ENT ENT exam: Present normal exam, normal oropharynx and mucous membranes moist Neck Neck exam: Present normal inspection, full ROM and trachea midline Chest Chest inspection: Present normal inspection and symmetric chest wall rise Respiratory Respiratory exam: Absent respiratory distress, wheezes, stridor, accessory muscle use or prolonged expiratory phase Cardiovascular Cardiovascular exam: Present regular rate, normal rhythm and normal heart sounds Abdominal Exam Abdominal exam: Present distention, normal bowel sounds, ascites and other (Abdominal distention, ascites) Extremities Exam Extremities exam: Present normal inspection and full ROM Back Exam Back exam: Present normal inspection and full ROM Neurological Exam Neurological exam: Present alert, oriented X3 and CN II-XII intact Psychiatric Psychiatric exam: Present normal affect and normal mood Skin Skin exam: Present warm, dry, intact and normal color Course Quality Measures none Vital Signs Vital signs: Vital Signs Temperature 98.6 F 12/05/24 16:28 Pulse Rate 84 12/05/24 16:28 Respiratory Rate 18 12/05/24 16:28 Blood Pressure 113/64 12/05/24 16:28 Pulse Oximetry (%) 95 12/05/24 16:28 Oxygen Delivery Method Room Air 12/05/24 16:28 O2 saturation 95% on room air within normal limits Abdominal Pain MDM MDM Narrative MDM Narrative:: 59-year-old male with cirrhosis and abdominal ascites presents to the emergency department today stating that he was sent by PCP for paracentesis currently patient reports no chest pain or shortness of breath I explained to the patient is quite late in the day and the interventional radiology is not here to do paracentesis at this time as the patient has no chest pain or shortness of breath I recommended he comes back tomorrow morning at 8 AM patient is amenable to this plan and states he will be happy to come back tomorrow Patient is instructed to return immediately for chest pain shortness of breath or any other concerns Patient data External records reviewed:: [facility] previous records Clinical information provided by:: patient Social determinants that could affect healthcare access:: substance use Patient has the following chronic illnesses:: See history How is presenting disease/condition affected by chronic disease/condition?: caused by Evaluation data The following diagnostics were reviewed and interpreted by me:: other (specify) Lab and/or radiology exams considered but not ordered:: Consider not ordered Interpretation Summary: N/A Medications / Prescriptions Medications or Prescriptions considered but not ordered:: No meds Medication administrations:: No meds Consultations Consultation(s) initiated? (list below): No Diagnosis Differential diagnosis abdominal pain: abdominal pain, pancreatitis and small bowel obstruction Most likely diagnosis given after review of the tests above:: Cirrhosis Admission Indicated Admission indicated?: not indicated Admission Request Was there a request for admission?: No Disposition Plan Disposition Plan: Discharge Discharge Attestation Discharge Attestation: The patient and all family members were given an opportunity to ask questions and understood the discharge instructions. Discharge instructions specifically effects, indications for sooner follow up or return to the emergency department, and the expected course of current diagnosis. Patient condition: Stable Discharge Plan Plan Patient Disposition: HOME (Self Care) Discharge Disposition comment: Stable Prescriptions/Referrals Prescriptions/Med Rec: No Action methadone 40 mg Tablet,Soluble 68 mg PO QDAY Problem List Clinical Impression: Cirrhosis, Abdominal ascites Patient/Caregiver Discharge Instructions Education Materials: ED Cirrhosis Additional Instructions: Please return tomorrow at 8 AM for lab work and Paracentesis completed Print Language: Danish Stand Alone Forms: Leandra Award Info., Patient Portal Info Letter PA/PSYCHIATRIC CLINICAL NURSE SPECIALIST Supervising Physician PA/PSYCHIATRIC CLINICAL NURSE SPECIALIST Supervising Physician: Dr. coffey
== END 2024-12-05 17:29 | disposition home or self-care (01) ==
LOC: SERX 16:41
PROVIDERS: Emergency Provider Family Medicine; PCP Nurse Practitioner Family
DX: K74.60 Unspecified cirrhosis of liver (principal); R18.8 Other ascites; F17.200 Nicotine dependence, unspecified, uncomplicated
CPT/HCPCS: 99282

== ENCOUNTER 2024-12-06 15:15 | Emergency (ER) | payer MEDICAID, SELFPAY ==
--- NOTE | 2024-12-06 17:29 | PC.NURSE ---
CALLED PT BACK @ 1600 FOR VITALS AND PROVIDER TO SEE PT. UPON SEEING PT, PT AND PT VISITOR STATED THAT IF THEY COULD NOT HAVE PARACENTESIS THEN THEY WOULD JUST LEAVE. INFORMED PT THAT I WAS UNSURE AND WOULD TALK TO CHARGE NURSE TO SEE IF WE HAVE THAT PROCEDURE AVAILABLE AT THAT TIME. CHARGE NURSE INFORMED ME THAT THE RADIOLOGIST WOULD BE LEAVING SOON AND WOULD MOST LIKELY NOT BE ABLE TO PERFORM PROCEDURE DUE TO WAITING FOR LAB WORK TO BE DRAWN BEFOREHAND. I RELAYED THE INFORMATION OVER TO PT AND PT VISITOR AND THEY STATED THAT THEY WOULD RETURN IN THE MORNING WHEN IT WAS AVAILABLE. INFORMED PT THAT THEY COULD WAIT IN ER PT FOR PROCEDURE LATER BUT THEY DECLINED. ADVISED PT TO RETURN IF SYMPTOMS WORSENED. PT AND PT VISITOR WERE SEEN LEAVING ER WITHOUT REGISTERING.
== END 2024-12-06 17:55 | disposition left against medical advice (07) ==
LOC: SERX 17:59
PROVIDERS: Emergency Provider Family Medicine
DX: Z53.21 Procedure and treatment not carried out due to patient leaving prior to being seen by health care provider (principal)

== ENCOUNTER 2024-12-13 07:16 | Emergency (ER) | payer MEDICAID, SELFPAY ==
[2024-12-13 07:17] VITALS: BMI 25.4
[2024-12-13 07:44] VITALS: BP 131/78; PULSE 87; RESP 18; TEMP 37; O2SAT 97
--- NOTE | 2024-12-13 08:26 | PD.EDABDPN ---
ED Abdominal Pain RME/HPI General Chief Complaint: Abdominal Pain Stated complaint: I NEED TO BE TAPPED Time seen by provider: 12/13/24 08:02 Arrival date/time: 12/13/24 07:16 Source: patient Mode of arrival: ambulatory Limitations: no limitations RME / HPI RME / HPI narrative: Patient is a 59-year-old male with medical history notable for cirrhosis, with an emergency department requesting a paracentesis. Patient denies fevers chills nausea vomiting shortness of breath abdominal pain dysuria hematuria melena bloody stool drugs alcohol. Patient does smoke tobacco. 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 Patient states that he went to see his primary care doctor, and was told that he was supposed to be prescribed medications for management of his cirrhosis however has not received the prescriptions yet. Patient is also in the process of being connected with a clinic for a scheduled paracentesis every few weeks. Related Data Home Medications ?Medication ?Instructions ?Recorded ?Confirmed methadone 40 mg soluble tablet 68 mg PO QDAY 10/22/20 10/22/20 Allergies Allergy/AdvReac Type Severity Reaction Status Date / Time No Known Allergies Allergy Verified 12/13/24 07:20 ED Exam General Limitations: Present no limitations General appearance: Present other (Chronically ill-appearing, not in any distress) Head Head exam: Present atraumatic Eye Eye exam: Present normal appearance ENT ENT exam: Present normal exam and other (Mostly edentulous, poor dentition) Neck Neck exam: Present normal inspection Chest Chest inspection: Present normal inspection Respiratory Respiratory exam: Absent respiratory distress, wheezes or accessory muscle use Cardiovascular Cardiovascular exam: Present regular rate and normal rhythm Abdominal Exam Abdominal exam: Present soft and distention (Minimal abdominal distention, no tenderness to palpation, positive fluid wave, multiple excoriations on patient's abdomen, no erythema); Absent tenderness, guarding, rebound or rigidity Neurological Exam Neurological exam: Present alert, oriented X3 and CN II-XII intact Psychiatric Psychiatric exam: Present normal affect and normal mood Skin Skin exam: Present warm and dry Course Quality Measures none Vital Signs Vital signs: Vital Signs Temperature 98.6 F 12/13/24 07:44 Pulse Rate 87 12/13/24 07:44 Respiratory Rate 18 12/13/24 07:44 Blood Pressure 131/78 H 12/13/24 07:44 Pulse Oximetry (%) 97 08/22/25 07:44 Oxygen Delivery Method Room Air 12/13/24 07:44 Abdominal Pain MDM [facility] Narrative [facility] Narrative:: Patient is a 59-year-old male into the emergency department requesting a paracentesis. Patient without fever, no abdominal pain, no chills, no difficulty breathing, no dysuria no hematuria no difficulty with urination or bowel movements. Vital signs exam as listed. Concern for ascites secondary to liver disease. Patient is hemodynamically stable, not with any evidence of decompensated liver disease. Abdominal distention is minimal, does not have any abdominal pain. Patient does not have an emergent indication for paracentesis at this time. Had extensive conversation with the patient as well as his [id number] at bedside with regards to risks benefits of paracentesis, patient in agreement that we will hold off on a paracentesis at this time, will continue pursuing his scheduled paracentesis as an outpatient, and will discuss with his primary care doctor today prescriptions for medication management of his liver disease. Patient discharged home he is hemodynamically stable not distressed all questions answered. Patient data External records reviewed:: [facility] previous records Clinical information provided by:: patient Social determinants that could affect healthcare access:: other (specify) Patient has the following chronic illnesses:: See MDM How is presenting disease/condition affected by chronic disease/condition?: exacerbated by Evaluation data The following diagnostics were reviewed and interpreted by me:: other (specify) (None) Lab and/or radiology exams considered but not ordered:: None Interpretation Summary: See [facility] Medications / Prescriptions Medications or Prescriptions considered but not ordered:: None Medication administrations:: None Consultations Consultation(s) initiated? (list below): No Diagnosis Differential diagnosis abdominal pain: abdominal pain and other (Ascites, decompensated cirrhosis) Most likely diagnosis given after review of the tests above:: Cirrhosis, not decompensated, ascites Admission Indicated Admission indicated?: not indicated Admission Request Was there a request for admission?: No Disposition Plan Disposition Plan: Discharge Discharge Attestation Discharge Attestation: The patient and all family members were given an opportunity to ask questions and understood the discharge instructions. Discharge instructions specifically effects, indications for sooner follow up or return to the emergency department, and the expected course of current diagnosis. Patient condition: Stable Discharge Plan Plan Patient Disposition: HOME (Self Care) Prescriptions/Referrals Prescriptions/Med Rec: No Action methadone 40 mg Tablet,Soluble 68 mg PO QDAY Problem List Clinical Impression: Ascites Patient/Caregiver Discharge Instructions Additional Instructions: Please call your primary care doctor and request that you be evaluated for medications for management of your liver cirrhosis, and ascites. Please continue working with your insurance to schedule your paracentesis as an outpatient. Return immediately if you develop fever, difficulty breathing, or any other symptom of concern. Print Language: Maldivian Stand Alone Forms: Leandra Award Info., Patient Portal Info Letter
== END 2024-12-13 09:11 | disposition home or self-care (01) ==
LOC: SERX 09:00
PROVIDERS: Emergency Provider Emergency Medicine; PCP Nurse Practitioner Family
DX: R18.8 Other ascites (principal); K74.60 Unspecified cirrhosis of liver
CPT/HCPCS: 99281

== ENCOUNTER → 2024-12-13 | Outpatient (CLI) | payer MEDICAID, SELFPAY ==
--- NOTE | 2024-12-13 09:27 | XR_ITS ---
Examination: Abdomen sonogram, Limited Date and time of exam: December 13, 2024 1108 hours INDICATIONS: Cirrhosis, increasing ascites and abdominal distention this week Technique: Real-time lema scale transabdominal sonographic images of the upper abdomen obtained. Findings: Minimal ascitic fluid IMPRESSION: Minimal ascitic fluid
== END | disposition home or self-care (01) ==
LOC: SIRX 09:07
PROVIDERS: PCP Nurse Practitioner Family; Referring Provider Nurse Practitioner Family; Visit Provider Nurse Practitioner Family
DX: K70.31 Alcoholic cirrhosis of liver with ascites (principal); Z53.8 Procedure and treatment not carried out for other reasons
CPT/HCPCS: 76705

== ENCOUNTER → 2024-12-25 | Outpatient (CLI) | payer MEDICAID, SELFPAY ==
[2024-12-25 13:30] LABS: Basophils # (Auto) 0.0 Thou/mm3 (0.0-0.2); Eosinophils # (Auto) 0.2 Thou/mm3 (0.0-0.5); Eosinophils % (Auto) 2 % (0-10); Hemoglobin 11.6 g/dL (13.5-16.0); Lymphocytes # (Auto) 0.7 Thou/mm3 (1.0-4.8); Nucleated Red Blood Cell # 0.00 Thou/mm3 (0.00-0.00); Nucleated Red Blood Cell % 0 /100 WBC (0)
[2024-12-25 13:32] LABS: Basophils % (Auto) 0 % (0-2.5); Hematocrit 36.6 % (41.0-53.0); Immature Granulocytes Auto 0.02 Thou/mm3 (0.00-0.00); Lymphocytes % (Auto) 11 % (10-50); Mean Corpuscular HGB Conc 31.7 g/dl (31.0-37.0); Mean Corpuscular Hemoglobin 26.8 pg (25.0-35.0); Mean Corpuscular Volume 85 fL (80-100); Monocytes # (Auto) 0.8 Thou/mm3 (0.0-0.8); Monocytes % (Auto) 11 % (0-12); Neutrophils # (Auto) 5.2 Thou/mm3 (1.8-7.7); Neutrophils % (Auto) 76 % (37-80); RDW Standard Deviation 57.4 fL (35.1-43.9); Red Blood Count 4.33 Miln/mm3 (4.50-5.90); White Blood Count 6.9 Thou/mm3 (3.8-10.6)
[2024-12-25 13:34] LABS: INR 1.2 (0.9-1.3); Partial Thromboplastin Time 29.5 Seconds (22.0-36.0); Prothrombin Time 13.0 Seconds (9.0-12.2)
[2024-12-25 13:48] LABS: Alanine Aminotransferase 34 U/L (10-49); Albumin, Serum 3.1 gm/dL (3.4-4.8); Albumin/Globulin Ratio 0.9 (1.2-2.2); Alkaline Phosphatase 92 U/L (46-116); Anion Gap 8 (7-16); Aspartate Amino Transferase 60 U/L (0-34); BUN/Creatinine Ratio 24 Ratio (12-20); Bilirubin,Total 1.4 mg/dL (0.3-1.2); Blood Urea Nitrogen 26 mg/dL (9-23); Calcium 8.8 mg/dL (8.3-10.6); Calcium (Corrected) 9.5 mg/dL (8.5-10.1); Carbon Dioxide 23.6 mMol/L (20.0-31.0); Chloride 102 mMol/L (98-107); Creatinine (Component) 1.1 mg/dL (0.6-1.3); Globulin 3.5 gm/dL (2.3-3.5); Glucose 149 mg/dL (74-106); Osmolality,Calculated 275 (275-295); Phosphorous 3.1 mg/dL (2.4-5.1); Potassium 4.7 mMol/L (3.4-5.1); Sodium 134 mMol/L (136-145); Total Protein 6.6 gm/dL (5.7-8.2); eGFR > 60 See Note
[2024-12-25 13:52] LABS: Platelet Count 82 Thou/mm3 (140-440)
== END | disposition home or self-care (01) ==
PROVIDERS: PCP Nurse Practitioner Family; Referring Provider Nurse Practitioner Family; Visit Provider Nurse Practitioner Family
DX: Z53.8 Procedure and treatment not carried out for other reasons (principal)
CPT/HCPCS: 36415; 80053; 80069; 85025; 85610; 85730

== ENCOUNTER → 2024-12-26 | Outpatient (CLI) | payer MEDICAID, SELFPAY ==
--- NOTE | 2024-12-26 11:30 | XR_ITS ---
Examination: Ultrasound-guided paracentesis Abdominal sonogram limited Date and time of exam: December 26, 2024, 16 hours INDICATIONS: Cirrhosis, increasing ascites and abdominal distention this week Informed consent provided. A timeout was completed verifying correct patient, procedure, site, positioning, and special adequate movement if applicable. Technique: Multiple sonographic images of the abdomen have been obtained. Appropriate area for paracentesis was marked. Local anesthesia is obtained with 1% lidocaine. Yueh catheter is successfully introduced. Findings: Abdominal sonographic images demonstrate sufficient ascitic fluid for paracentesis. After placing the Yueh catheter, [id number] cc of fluid were successfully removed. During and after completion of the procedure the patient appear in satisfactory and stable condition with no complications observed. Estimated blood loss 0 cc Impression: Abdominal ascites Successful ultrasound-guided paracentesis as described above
== END | disposition home or self-care (01) ==
PROVIDERS: PCP Nurse Practitioner Family; Referring Provider Nurse Practitioner Family; Visit Provider Nurse Practitioner Family
DX: K70.31 Alcoholic cirrhosis of liver with ascites (principal)
CPT/HCPCS: 49083; C1729

== ENCOUNTER → 2025-01-08 | Outpatient (CLI) | payer MEDICAID, SELFPAY ==
--- NOTE | 2025-01-08 11:30 | XR_ITS ---
Examination: Ultrasound-guided paracentesis Abdominal sonogram limited Date and time of exam: January 08, 2025 1140 hours INDICATIONS: Cirrhosis, increasing ascites and abdominal distention this week Informed consent provided. A timeout was completed verifying correct patient, procedure, site, positioning, and special adequate movement if applicable. Technique: Multiple sonographic images of the abdomen have been obtained. Appropriate area for paracentesis was marked. Local anesthesia is obtained with 1% lidocaine. Yueh catheter is successfully introduced. Findings: Abdominal sonographic images demonstrate sufficient ascitic fluid for paracentesis. After placing the Yueh catheter, 7600 cc of fluid were successfully removed. During and after completion of the procedure the patient appear in satisfactory and stable condition with no complications observed. Estimated blood loss 0 cc Impression: Abdominal ascites Successful ultrasound-guided paracentesis as described above
[2025-01-08] MEDS: ALBUMIN HUMAN 25% IVPB 25 GM/100 ML BTL IV (13:25)
== END | disposition home or self-care (01) ==
LOC: SIRX 10:41
PROVIDERS: PCP Nurse Practitioner Family; Referring Provider Nurse Practitioner Family; Visit Provider Nurse Practitioner Family
DX: K70.31 Alcoholic cirrhosis of liver with ascites (principal)
CPT/HCPCS: 49083; P9047

== ENCOUNTER 2025-01-17 16:21 | Emergency (ER) | payer MEDICAID, SELFPAY ==
[2025-01-17 16:33] VITALS: BP 90/51; PULSE 122; RESP 19; TEMP 36.3; O2SAT 95; BMI 23.3
[2025-01-17 16:40] VITALS: PULSE 92; O2SAT 96
--- NOTE | 2025-01-17 16:49 | PD.EDRME ---
Rapid Medical Screening Exam RME Arrival date/time: 01/17/25 16:21 59-year-old male with a history of liver cirrhosis presents to the emergency room due to abdominal pain and abdominal distention x 1 day I have greeted and performed a focused initial assessment of this patient. A comprehensive ED assessment and evaluation of the patient, analysis of all test results, and completion of the medical decision making process will be conducted by additional ED providers. Vital signs: Vital Signs Temperature 97.4 F 01/17/25 16:33 Pulse Rate 122 H 01/17/25 16:33 Respiratory Rate 19 01/17/25 16:33 Blood Pressure 90/51 L 01/17/25 16:33 Pulse Oximetry (%) 95 01/17/25 16:33 Oxygen Delivery Method Room Air 01/17/25 16:33 Vital signs reviewed by provider: Yes
[2025-01-17 17:25] LABS: Lactate (Lactic Acid) 2.4 mMol/L (0.4-2.0)
[2025-01-17 17:39] LABS: Basophils # (Auto) 0.0 Thou/mm3 (0.0-0.2); Basophils % (Auto) 0 % (0-2.5); Eosinophils # (Auto) 0.0 Thou/mm3 (0.0-0.5); Eosinophils % (Auto) 0 % (0-10); Hematocrit 40.8 % (41.0-53.0); Hemoglobin 13.2 g/dL (13.5-16.0); Immature Granulocytes Auto 0.04 Thou/mm3 (0.00-0.00); Lymphocytes # (Auto) 0.4 Thou/mm3 (1.0-4.8); Lymphocytes % (Auto) 4 % (10-50); Mean Corpuscular HGB Conc 32.4 g/dl (31.0-37.0); Mean Corpuscular Hemoglobin 27.5 pg (25.0-35.0); Mean Corpuscular Volume 85 fL (80-100); Monocytes # (Auto) 0.5 Thou/mm3 (0.0-0.8); Monocytes % (Auto) 4 % (0-12); Neutrophils # (Auto) 9.7 Thou/mm3 (1.8-7.7); Neutrophils % (Auto) 91 % (37-80); Nucleated Red Blood Cell # 0.00 Thou/mm3 (0.00-0.00); Nucleated Red Blood Cell % 0 /100 WBC (0); Platelet Count 84 Thou/mm3 (140-440); RDW Standard Deviation 56.8 fL (35.1-43.9); Red Blood Count 4.80 Miln/mm3 (4.50-5.90); White Blood Count 10.6 Thou/mm3 (3.8-10.6)
[2025-01-17 17:43] LABS: INR 1.2 (0.9-1.3); Partial Thromboplastin Time 26.4 Seconds (22.0-36.0); Prothrombin Time 12.5 Seconds (9.0-12.2)
[2025-01-17 17:52] LABS: Alanine Aminotransferase 50 U/L (10-49); Albumin, Serum 3.0 gm/dL (3.4-4.8); Albumin/Globulin Ratio 0.8 (1.2-2.2); Alkaline Phosphatase 131 U/L (46-116); Anion Gap 9 (7-16); Aspartate Amino Transferase 78 U/L (0-34); BUN/Creatinine Ratio 21 Ratio (12-20); Bilirubin,Total 1.1 mg/dL (0.3-1.2); Blood Urea Nitrogen 38 mg/dL (9-23); Calcium 9.1 mg/dL (8.3-10.6); Calcium (Corrected) 9.9 mg/dL (8.5-10.1); Carbon Dioxide 20.5 mMol/L (20.0-31.0); Chloride 105 mMol/L (98-107); Creatinine (Component) 1.8 mg/dL (0.6-1.3); Estimated Creatinine Clearance 39.4 mL/min (>60); Globulin 3.7 gm/dL (2.3-3.5); Glucose 125 mg/dL (74-106); Osmolality,Calculated 278 (275-295); Potassium 5.6 mMol/L (3.4-5.1); Procalcitonin 0.12 ng/ml (0.0-0.49); Sodium 134 mMol/L (136-145); Total Protein 6.7 gm/dL (5.7-8.2); eGFR 43 See Note
[2025-01-17 18:11] LABS: Ammonia 187 uMol/L (11-32)
[2025-01-17 20:22] LABS: Reflex Lactate? Y
--- NOTE | 2025-01-17 22:16 | PC.NURSE ---
PT CALLED X 3 NO ANSWER EACH TIME.
== END 2025-01-17 22:16 | disposition left against medical advice (07) ==
PROVIDERS: Nurse Practitioner Family; Emergency Provider Emergency Medicine
DX: R10.9 Unspecified abdominal pain (principal); R14.0 Abdominal distension (gaseous); Z53.29 Procedure and treatment not carried out because of patient's decision for other reasons
CPT/HCPCS: 36415; 80053; 81001; 82140; 83605; 84145; 85025; 85610; 85730; 87040; 87086; 99283

== ENCOUNTER 2025-01-19 12:56 | Inpatient (IN) | payer MEDICAID, SELFPAY ==
[2025-01-19] VITALS (8 sets, daily range): BP systolic 90–105; BP diastolic 50–68; PULSE 75–92; RESP 14–99; TEMP 36.5–37.1; O2SAT 95–100; BMI 21.4; BMI 15.2
--- NOTE | 2025-01-19 12:59 | EKG_ITS ---
[facility] Test Date: 2025-01-19 Pat Name: KADE EDOUARD Department: Room: - Gender: Male Vehicle Check In Clerk: : 1965 Requested By: Ed Briseno Order Number: [id number] Reading MD: Ed Briseno Measurements Intervals [place] Rate: 78 P: 57 NE: 207 QRS: 43 QRSD: 78 T: 34 QT: 371 QTc: 425 Interpretive Statements SINUS RHYTHM LOW QRS VOLTAGE [QRS DEFLECTION < 0.5/1.0 mV IN LIMB/CHEST LEADS] POSSIBLE ANTERIOR MYOCARDIAL INFARCTION , OF INDETERMINATE AGE [30 ms Q WAVE IN V3/V4, OR R < 0.2 mV IN V4] No previous ECG available for comparison /store/S0/[id number].pdf
--- NOTE | 2025-01-19 12:59 | PD.EDADULT ---
ED General RME/HPI General Chief complaint: Weakness Stated complaint: WEAKNESS Time Seen by Provider: 01/19/25 12:58 Arrival date/time: 01/19/25 12:56 CC: Weakness lethargy HPI patient presents to the ER via EMS reports stable vital signs. The patient is a cirrhosis, not a DNR, was in the ER several days ago but left AMA. Denies any chest pain shortness of breath or difficulty breathing. Per medical records last paracentesis was December 26. Related Data Home Medications ?Medication ?Instructions ?Recorded ?Confirmed methadone 40 mg soluble tablet 68 mg PO QDAY 10/22/20 10/22/20 Allergies Allergy/AdvReac Type Severity Reaction Status Date / Time No Known Allergies Allergy Verified 12/13/24 07:20 Review of Systems Review of Systems Narrative Review of Systems: GEN: No fever, no chills, no weight loss EYES: No discharge, no visual changes, no pain HEENT: No ear pain, no congestion, no sore throat PULM: No shortness of breath, no cough, no congestion CV: No chest pain, no dyspnea on exertion, no palpitations GI: No nausea, no vomiting, no diarrhea, no pain, no constipation : No frequency, no urgency, no dysuria MUSC/SKEL: No joint pain, no back pain SKIN: No rash PSYCH: No hallucinations, no depression HEME/LYMPH: No easy bleeding or bruising tendencies NEURO: + weakness, no headache ED Exam Narrative Physical exam: [General: Emaciated, appears not in any acute distress Head normocephalic HEENT: Within acceptable limits Neck is supple nontender Chest equal chest rise nontender to palpation Respiratory: Clear to auscultation no wheezes crackles or rubs CV: Rate rhythm is regular no murmurs rubs or clicks Abdomen is mildly distended, soft nontender no masses positive bowel sounds all 4 quadrants Back: No CVA tenderness no spinous process tenderness from cervical spine thoracic and lumbar spine Skin: Intact no petechiae rash induration ulceration or crepitus Extremities: Moving all extremity against resistance cap refill less than 2 seconds neurosensory intact Neuro: Awake alert oriented x1, person, slow to respond. Glascow coma 15 no focal deficits] Course Course Course Narrative: Patient reports he does not want anything done, family member pushing hard for him to be seen, the patient finally agreed to be seen and called 911. Patient states the complaints he has are chronic unchanged complaints. Reassessment of the patient at 1800, the patient continues to be hypotensive at 90/16, I have a difficulty getting any fluids into her because the IV he has runs only at 100 cc an hour. The 2 L that were ordered have only begun, the medications prescribed have been infused. Ammonia level is 98 patient was made aware that he will need to take lactulose and reminds me that he does not take lactulose at home. Patient case discussed with Dr. Garces, who will review the case to determine if the patient needs to be admitted. Quality Measures none Orders Category Date Time Status COVID-19 Screening Questionnaire NOW Care 01/19/25 18:47 Active Decision to Admit X1 Care 01/19/25 18:47 Active EKG (ED ONLY) *Do not use* NOW Care 01/19/25 12:59 Completed EKG (ED Only) Stat Exams 01/19/25 12:59 Draft Ammonia Stat Lab 01/19/25 17:18 Completed B-Type Natriuretic Peptide Stat Lab 01/19/25 13:47 Completed CBC Stat Lab 01/19/25 13:47 Completed Comprehensive Metabolic Panel Stat Lab 01/19/25 13:47 Completed Drug Screen,Urine Stat Lab 01/19/25 15:30 Completed LDH (Lactate Dehydrogenase) Stat Lab 01/19/25 13:47 Completed Magnesium Stat Lab 01/19/25 13:47 Completed Partial Thromboplastin Time Stat Lab 01/19/25 13:47 Completed Prothrombin Time with INR Stat Lab 01/19/25 13:47 Completed Troponin I Stat Lab 01/19/25 13:47 Completed Urinalysis, C/S if Indicated Stat Lab 01/19/25 15:30 Completed Calcium Gluconate 10% Inj Med 01/19/25 15:13 Discontinued 1 gm IV X1 ONE Dextrose 50% Syr [D50w Syringe Abboject] Med 01/19/25 15:13 Discontinued 50 ml IVP X1 ONE Insulin Regular Med 01/19/25 15:13 Discontinued 5 unit IV X1 ONE Lactulose Syrup [Enulose Syrup] Med 01/19/25 18:10 Discontinued 20 gm PO X1 ONE Ondansetron Inj [Zofran Inj] Med 01/19/25 13:26 Discontinued 4 mg IVP X1 ONE Ringers Lactated 1000 ml [Lactated Ringers] 1,000 ml Med 01/19/25 13:26 Discontinued IV 999 mls/hr Ringers Lactated 1000 ml [Lactated Ringers] 1,000 ml Med 01/19/25 15:14 Discontinued IV 999 mls/hr Vital Signs Vital signs: Vital Signs Temperature 97.7 F 01/19/25 12:59 Pulse Rate 84 01/19/25 12:59 Respiratory Rate 14 01/19/25 12:59 Blood Pressure 102/50 L 01/19/25 12:59 Pulse Oximetry (%) 100 01/19/25 12:59 Oxygen Delivery Method Room Air 01/19/25 12:59 Discharge Plan Plan Patient Disposition: Other Care w/in Hosp ([facility]AN) Problem List Clinical Impression: Increased ammonia level, MARTY (acute kidney injury) PA/TELESALES TEAM LEADER Supervising Physician PA/TELESALES TEAM LEADER Supervising Physician: Ed Marquez ENP [facility] Clinical Information Provided by: patient and EMS Medical Records reviewed [facility] and EMS Meds/Rx considered, not ordered None Labs/Rad/Tests considered, not ordered None Chronic Illness/Social Conditions Explain: Liver failure 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 No old EKG for comparison. Labs Labs: interpreted by ms Lab(s) Interpretation(s): CBC shows no acute leukocytosis anemia but there is a thrombocytopenia with a platelet count of 52. Coags show PT of 12.6 INR PTT within acceptable limits CMP shows potassium of 5.5. BUN of 41 and creatinine of 1.5. Glucose at 125. No other significant lecture light imbalances T. bili of 1.7 AST of 68 ALT 43 alk phos 113 LDH at 296. Troponin is less than 0.02. BMP within acceptable limits Ammonia level is 98. Medication Administration(s) none Medication Administration History Acetaminophen (Acetaminophen 325 Mg Tablet) 650 mg PO Q6H PRN PRN Reason: Fever >101.5 Stop: 02/18/25 18:58 Albumin Human (Albumin Human-Kjda 25% Ivpb 25 Gm/100 Ml Btl) 25 gm IV Q12HR JAYNE Stop: 02/18/25 20:59 Heparin Sodium (Porcine) (Heparin Sod Inj 5000 Unit/Ml Vial) 5,000 unit SC Q12HR JAYNE Stop: 02/02/25 20:59 Lactulose (Lactulose Syrup 20 Gm/30 Ml Udc) 20 gm PO TID JAYNE; Protocol Stop: 02/18/25 21:59 Ondansetron HCl (Ondansetron Inj 2 Mg/Ml Inj 2 Ml) 4 mg IVP Q6H PRN; Protocol PRN Reason: NAUSEA OR VOMITING Stop: 02/18/25 18:58 Discontinued Medications Calcium Gluconate (Calcium Gluconate 10% Inj 1 Gm/10 Ml Vial) 1 gm IV X1 ONE Stop: 01/19/25 15:14 Last Admin: 01/19/25 16:26 Dose: 1 gm Documented By: ED Dextrose (Dextrose 50%-Water Inj 50 Ml Syringe) 50 ml IVP X1 ONE Stop: 01/19/25 15:14 Last Admin: 01/19/25 16:33 Dose: 50 ml Documented By: ED Lactated Ringer's (Lactated Ringers) 1,000 mls @ 999 mls/hr IV .Q1H1M ONE Stop: 01/19/25 14:26 Last Admin: 01/19/25 14:02 Dose: 999 mls/hr Documented By: VRS Lactated Ringer's (Lactated Ringers) 1,000 mls @ 999 mls/hr IV .Q1H1M ONE Stop: 01/19/25 16:14 Insulin Human Regular (Insulin Hum Regular 1 Unit/0.01 Ml (Per Unit)) 5 unit IV X1 ONE Stop: 01/19/25 15:14 Last Admin: 01/19/25 16:40 Dose: 5 unit Documented By: ED Co-signed By: DO Lactulose (Lactulose Syrup 20 Gm/30 Ml Udc) 20 gm PO X1 ONE; Protocol Stop: 01/19/25 18:11 Last Admin: 01/19/25 18:47 Dose: 20 gm Documented By: RANDAL Ondansetron HCl (Ondansetron Inj 2 Mg/Ml Inj 2 Ml) 4 mg IVP X1 ONE; Protocol Stop: 01/19/25 13:27 Last Admin: 01/19/25 14:02 Dose: 4 mg Documented By: RANDAL None Diagnosis Differential Diagnosis ED Complaint MDM: Elevated ammonia level, renal MARTY, weakness
--- NOTE | 2025-01-19 13:36 | PC.NURSE ---
PT BROUGHT IN BY AMBULANCE FOR WEAKNESS AND VOMITING. PT A/O X3, SLOW TO RESPOND, BUT ALERT TO SELF AND PLACE. PT UNABLE TO ANSWER DATE. PT'S BROTHER AT BEDSIDE. PT DOES HAVE HX OF CIRRHOSIS AND LAST PARACENTISIS WAS DONE ON 01/08/25 PER FAMILY. PROVIDER PEREZ, IN TO SEE PT AND WILL FOLLOW THROUGH WITH ORDERS.
[2025-01-19] MEDS: RINGERS LACTATED 1000 ML 1,000 ML 999 ML IV (14:02)
[2025-01-19] MEDS: ONDANSETRON INJ 2 MG/ML INJ 2 ML 4 MG IVP (14:02)
[2025-01-19 14:21] LABS: Basophils # (Auto) 0.0 Thou/mm3 (0.0-0.2); Basophils % (Auto) 0 % (0-2.5); Eosinophils # (Auto) 0.1 Thou/mm3 (0.0-0.5); Eosinophils % (Auto) 1 % (0-10); Hematocrit 41.2 % (41.0-53.0); Hemoglobin 13.2 g/dL (13.5-16.0); Immature Granulocytes Auto 0.02 Thou/mm3 (0.00-0.00); Lymphocytes # (Auto) 0.7 Thou/mm3 (1.0-4.8); Lymphocytes % (Auto) 8 % (10-50); Mean Corpuscular HGB Conc 32.0 g/dl (31.0-37.0); Mean Corpuscular Hemoglobin 27.2 pg (25.0-35.0); Mean Corpuscular Volume 85 fL (80-100); Monocytes # (Auto) 0.5 Thou/mm3 (0.0-0.8); Monocytes % (Auto) 6 % (0-12); Neutrophils # (Auto) 6.8 Thou/mm3 (1.8-7.7); Neutrophils % (Auto) 84 % (37-80); Nucleated Red Blood Cell # 0.00 Thou/mm3 (0.00-0.00); Nucleated Red Blood Cell % 0 /100 WBC (0); RDW Standard Deviation 56.4 fL (35.1-43.9); Red Blood Count 4.85 Miln/mm3 (4.50-5.90); White Blood Count 8.1 Thou/mm3 (3.8-10.6)
[2025-01-19 14:31] LABS: INR 1.2 (0.9-1.3); Partial Thromboplastin Time 26.5 Seconds (22.0-36.0); Platelet Count 52 Thou/mm3 (140-440); Prothrombin Time 12.6 Seconds (9.0-12.2)
[2025-01-19 14:37] LABS: Alanine Aminotransferase 43 U/L (10-49); Albumin, Serum 3.1 gm/dL (3.4-4.8); Albumin/Globulin Ratio 0.8 (1.2-2.2); Alkaline Phosphatase 113 U/L (46-116); Anion Gap 8 (7-16); Aspartate Amino Transferase 68 U/L (0-34); BUN/Creatinine Ratio 27 Ratio (12-20); Bilirubin,Total 1.7 mg/dL (0.3-1.2); Blood Urea Nitrogen 41 mg/dL (9-23); Calcium 9.2 mg/dL (8.3-10.6); Calcium (Corrected) 9.9 mg/dL (8.5-10.1); Carbon Dioxide 22.9 mMol/L (20.0-31.0); Chloride 106 mMol/L (98-107); Creatinine (Component) 1.5 mg/dL (0.6-1.3); Estimated Creatinine Clearance 46.0 mL/min (>60); Globulin 3.8 gm/dL (2.3-3.5); Glucose 125 mg/dL (74-106); LDH (Lactate Dehydrogenase) 296 U/L (120-246); Magnesium 2.4 mg/dL (1.6-2.6); Osmolality,Calculated 284 (275-295); Potassium 5.5 mMol/L (3.4-5.1); Sodium 137 mMol/L (136-145); Total Protein 6.9 gm/dL (5.7-8.2); Troponin I < 0.020 ng/mL (0.0-0.045); eGFR 53 See Note
[2025-01-19 14:57] LABS: B-Type Natriuretic Peptide < 20 pg/mL (0-100)
[2025-01-19 15:51] LABS: Collection Type, Urine Clean Catch
[2025-01-19 16:13] LABS: Bacteria,Urine Rare; Bilirubin,Urine Negative (Negative); Blood,Urine Negative (Negative); Clarity,Urine Clear (Clear/Hazy); Color,Urine Yellow (Lt Yel-Yel); Culture Indicated,Urine Not Indicated; Glucose, Urine Negative (Negative); Ketones,Urine Negative (Negative); Leukocyte Esterase,Urine Negative (Negative); Nitrite,Urine Negative (Negative); PH,Urine 6.5 (5.0-7.0); Protein,Urine Negative (Neg - Trace); RBC,Urine 3 /hpf (0-3); Specific Gravity,Urine 1.024 (1.001-1.035); Squamous Epithelial Cell,Urine < 1 /hpf (0-5); Urobilinogen,Urine 4.0 mg/dL (0.0-1.0); WBC,Urine < 1 /hpf (0-5)
[2025-01-19 16:19] LABS: Slide Review Platelets confirmed
[2025-01-19] MEDS: CALCIUM GLUCONATE 10% INJ 1 GM/10 ML VIAL IV (16:26)
[2025-01-19] MEDS: DEXTROSE 50%-WATER INJ 50 ML SYRINGE IVP (16:33)
[2025-01-19 16:35] LABS: Amphetamine/Methamp Scrn,U Negative (Negative); Barbiturate Screen,Urine Negative (Negative); Benzodiazepines Screen,Urine Negative (Negative); Benzoylecgonine Screen, Ur Negative (Negative); Fentanyl Screen,Urine Negative (Negative); Opiate Screen,Urine Positive (Negative); THC Screen,Urine Negative (Negative)
[2025-01-19] MEDS: INSULIN HUM REGULAR 1 UNIT/0.01 ML (PER UNIT) 5 UNIT IV (16:40)
[2025-01-19 17:49] LABS: Ammonia 98 uMol/L (11-32)
[2025-01-19] MEDS: LACTULOSE SYRUP 20 GM/30 ML UDC PO ×2 (18:47→23:39)
--- NOTE | 2025-01-19 18:53 | ESHP_ITS ---
Documentation for date of: 01/19/25 HPI History of Present Illness History of present illness: Patient is a 59 years old male with past medical history of liver cirrhosis, remote history of drug abuse who presented to the ED with complaint of generalized weakness, decreased oral intake and altered mental status. Patient appears tired and not able to carry out full conversation most of the HPI obtained from his daughter at bedside. As per the daughter, patient has been slowly declining over the last 2 months. He has been losing weight significantly, she thinks he has almost lost half of his weight within the last 6 months. But since this Monday, patient has become more weak, has been sleeping most of the day, complaining of abdominal discomfort, has been having decreased oral intake, mostly eating pudding and fluid only. He also appears confused and is not making sense while having conversation with her, on Monday and today, today being worse. He is also having nausea and vomiting. Denies any fever, chills, shortness of breath, hematemesis, hematochezia or black tarry stool. In the ED, initial vitals were within normal limits, blood pressure on softer side, 92/59 this evening. Saturating well on room air. EKG was done, shows sinus rhythm and low voltage. Lab results show platelets of 52, potassium 5.5, BUN/creatinine 41/1.5, baseline appears to be around 1.0-1.1 also has total bilirubin of 1.7, AST 68, ammonia 98, LDH 296, albumin 3.1. Urinalysis did not show any signs of infection. Drug screen were positive for opiates. Patient also noted to have positive hepatitis C antibody studies in 2020. She received ondansetron, calcium gluconate, insulin, D5 W, lactulose and LR in the ED. After examination of the patient and review of the clinical data I feel that this patient needs admission to the hospital for further treatment/evaluation of hepatic encephalopathy, decompensated liver cirrhosis, MARTY and hyperkalemia. Past medical history: Liver cirrhosis Social history: Lives with his mother, has history of smoking, used to drink occasionally, used to use illicit drugs, cocaine, including IV route Review of Systems Review of Systems Systems Reviewed: All systems reviewed, normal except as documented Exam Vital Signs Temp Pulse Resp BP Pulse Ox O2 Del Method 98.0 F 75 16 92/59 L 100 Room Air 01/19/25 18:08 01/19/25 18:08 01/19/25 18:08 01/19/25 18:08 01/19/25 18:08 01/19/25 18:08 Narrative Exam General: Patient is drowsy, opens his eyes on questioning but tends to fall back to sleep right away, oriented x 2, not oriented to time, uninterested in conversation HEENT: Normocephalic, atraumatic, EOMI, PERRLA, appears dry Chest: Clear to auscultate bilaterally, no wheezing or crackles CVS: Regular rate and rhythm, S1 and S2 heard without murmur Abdomen: Soft, mild distention, no tenderness, bowel sound present Neuro: Alert but confused, sleepy and unable to participate in exam fully, moving all his limbs, no obvious focal neurological deficit Extremities/skin: Bilateral extremity with chronic stasis skin changes, no edema Results: Labs 01/19/25 13:47 01/19/25 13:47 Labs: Short CBC 01/19/25 Range/Units 13:47 WBC 8.1 (3.8-10.6) Thou/mm3 Hgb 13.2 L (13.5-16.0) g/dL Hct 41.2 (41.0-53.0) % Plt Count 52 L D (140-440) Thou/mm3 BMP 01/19/25 13:47 Sodium 137 Potassium 5.5 H Chloride 106 Carbon Dioxide 22.9 BUN 41 H Creatinine 1.5 H Glucose 125 H Calcium 9.2 Cardiac Enzymes 01/19/25 Range/Units 13:47 Troponin I < 0.020 (0.0-0.045) ng/mL Liver Function 01/19/25 Range/Units 13:47 Total Bilirubin 1.7 H D (0.3-1.2) mg/dL AST 68 H (0-34) U/L ALT 43 (10-49) U/L Alkaline Phosphatase 113 (46-116) U/L Albumin 3.1 L (3.4-4.8) gm/dL Urine 01/19/25 Range/Units 15:30 Urine Color Yellow (Lt Yel-Yel) Urine Clarity Clear (Clear/Hazy) Urine pH 6.5 (5.0-7.0) Ur Specific [place] 1.024 (1.001-1.035) Urine Protein Negative (Neg - Trace) Urine Glucose (UA) Negative (Negative) Quality Measures Quality Measures VTE prophylaxis Medications Home Medications and Allergies Home Medications ?Medication ?Instructions ?Recorded ?Confirmed ?Type methadone 40 mg soluble tablet 68 mg PO QDAY 10/22/20 10/22/20 History Allergies Allergy/AdvReac Type Severity Reaction Status Date / Time No Known Allergies Allergy Verified 12/13/24 07:20 Visit Medications Discontinued Medications Calcium Gluconate (Calcium Gluconate 10% Inj 1 Gm/10 Ml Vial) 1 gm IV X1 ONE Stop: 01/19/25 15:14 Last Admin: 01/19/25 16:26 Dose: 1 gm Dextrose (Dextrose 50%-Water Inj 50 Ml Syringe) 50 ml IVP X1 ONE Stop: 01/19/25 15:14 Last Admin: 01/19/25 16:33 Dose: 50 ml Lactated Ringer's (Lactated Ringers) 1,000 mls @ 999 mls/hr IV .Q1H1M ONE Stop: 01/19/25 14:26 Last Admin: 01/19/25 14:02 Dose: 999 mls/hr Lactated Ringer's (Lactated Ringers) 1,000 mls @ 999 mls/hr IV .Q1H1M ONE Stop: 01/19/25 16:14 Insulin Human Regular (Insulin Hum Regular 1 Unit/0.01 Ml (Per Unit)) 5 unit IV X1 ONE Stop: 01/19/25 15:14 Last Admin: 01/19/25 16:40 Dose: 5 unit Lactulose (Lactulose Syrup 20 Gm/30 Ml Udc) 20 gm PO X1 ONE; Protocol Stop: 01/19/25 18:11 Last Admin: 01/19/25 18:47 Dose: 20 gm Ondansetron HCl (Ondansetron Inj 2 Mg/Ml Inj 2 Ml) 4 mg IVP X1 ONE; Protocol Stop: 01/19/25 13:27 Last Admin: 01/19/25 14:02 Dose: 4 mg Assessment & Plan Plan 59 years old male with past medical history of liver cirrhosis presented with confusion, generalized weakness and decreased oral intake being admitted for management of acute hepatic encephalopathy, decompensated liver cirrhosis, MARTY and electrolyte imbalances. #Acute encephalopathy #Decompensated liver cirrhosis Patient has been confused since 3 days back, has been having decreased oral intake and not making sense while talking to the family He has been diagnosed with liver cirrhosis, undergoes scheduled paracentesis with radiology Unclear cause, possibly secondary to hepatitis C, family stated patient only drank occasionally Has a bilirubin of 1.7, AST 68 ammonia 98, ammonia level was 187 on 01/17/2025. PT/INR was 12.6/1.2 Abdomen/pelvis CT from 11/28/2024 showed cirrhosis, esophageal and perigastric varices We will obtain liver ultrasound and evaluate for ascites Started on lactulose 20 g 3 times daily, goal of 3-4 bowel movements per day Frequent neurochecks, swallow screen before restarting diet If mentation does not improve, we will consider brain imaging and neurology consult #MARTY #Rule out hepatorenal syndrome Possibly prerenal in setting of poor oral intake, cannot rule out hepatorenal syndrome Patient has BUN/creatinine of 41/1.5, slightly improved compared to 38/1.8 on 01/17/2025, baseline appears to be 1.0-1.1 Patient received IV fluid in the ED Started on albumin 25 g twice daily, will closely monitor renal function for 48 hours Avoid nephrotoxins, strict ins and outs Ordered urine electrolytes and urine creatinine #Hyperkalemia Insetting of MARTY, no signs of active bleeding, stable hemoglobin Received temporizing measures and fluid in the ED We will monitor closely #Hepatitis C Patient noted to have hepatitis C antibody reactivity in 10/23/2020 We will obtain HCVRNA and hepatitis C antibody Patient will need further outpatient follow-up/treatment #Failure to thrive As per daughter patient has been having significant unintentional weight loss, temporal wasting Has been having poor oral intake Albumin is 3.1 We will obtain registered dietitian consult, encourage patient to have good oral intake. #Thrombocytopenia Patient noted to have platelets of 52, likely secondary to cirrhosis No signs of active bleeding, we will monitor closely Disposition: Telemetry for management of acute encephalopathy CODE STATUS: Full code Diet: Regular diet DVT prophylaxis: Heparin ADRY Garces MD
--- NOTE | 2025-01-19 19:14 | ECHO_ITS ---
Transthoracic Echo Report Ht (in): 67 Wt (lb): 137 Exam Location: [id number] Status: Emergency Rack Worker: Debbie Banerjee Indications: Procedure Performed: BP: 100 / 70 HR: 72 MEASUREMENTS (Male / Female) Normal Values 2D ECHO LV Diastolic Diameter PLAX 4.5 cm 4.2 - 5.9 / 3.9 - 5.3 cm LV Systolic Diameter PLAX 3.3 cm IVS Diastolic Thickness 0.8 cm 0.6 - 1.0 / 0.6 - 0.9 cm LVPW Diastolic Thickness 1.3 cm 0.6 - 1.0 / 0.6 - 0.9 cm LV Relative Wall Thickness 0.5 DOPPLER AV Peak Velocity 87.0 cm/s AV Peak Gradient 3.0 mmHg AV Mean Gradient 1.0 mmHg AV Velocity Time Integral 13.6 cm LVOT Peak Velocity 83.0 cm/s LVOT Peak Gradient 2.8 mmHg LVOT Velocity Time Integral 15.8 cm MV Area PHT 4.9 cm? Mitral E Point Velocity 35.5 cm/s Mitral A Point Velocity 63.0 cm/s Mitral E to A Ratio 0.6 TR Peak Velocity 121.0 cm/s TR Peak Gradient 5.9 mmHg FINDINGS Left Ventricle Normal left ventricular size, wall thickness, systolic function with no obvious regional wall motion abnormalities.there is grade I diastolic dysfunction of the left ventricle (impaired relaxation pattern). The ejection fraction is visually estimated at 50-55 %. Right Ventricle The right ventricle is normal in size and systolic function. Left Atrium The left atrium is normal by two-dimensional, color flow and Doppler imaging with no structural abnormalities, no thrombus formation present. Right Atrium The right atrium is normal by two-dimensional imaging, color flow and Doppler imaging with no structural abnormalities, no thrombus formation present. Atrial Septum The interatrial septum appears normal with no evidence of a shunt. Aorta The aorta is normal by two-dimensional, color flow and Doppler interrogation. Mitral Valve Mild thickening of the mitral valve leaflets. Trace to mild mitral regurgitation. Aortic Valve Aortic valve sclerosis without stenosis. Tricuspid Valve The tricuspid valve is normal by two-dimensional, color flow and Doppler interrogation. There is trace tricuspid valve regurgitation. Pulmonic Valve The pulmonic valve is not well visualized. There is no significant pulmonic valve regurgitation. Vessels The pulmonary artery appears normal. The inferior vena cava pulmonary and hepatic veins appear normal. Pericardium There is a trace pericardial effusion and large pleural effusion Other Findings TDS due to fluid and pectus chest wall CONCLUSIONS Indication: CHF TDS due to fluid and pectus chest wall Normal left ventricular size and function. Grade I diastolic dysfunction. Estimated EF 60% The right ventricle is normal in size and systolic function. Aortic valve sclerosis without stenosis. Mild thickening of the mitral valve leaflets Trace mitral and trace tricuspid regurgitation Breanne Pandey (Electronically Signed) Final Date: 20 January 2025 17:14
--- NOTE | 2025-01-19 19:17 | XR_ITS ---
Examination: Abdomen sonogram, Limited Date and time of exam: January 19, 2025 2114 hrs. Indications: Cirrhosis, ascites and abdominal distention this week Technique: Real-time lema scale transabdominal sonographic images of the abdomen obtained. Findings: Moderate ascites Impression: Moderate ascites
[2025-01-19] MEDS: HEPARIN SOD INJ 5000 UNIT/ML VIAL SC (23:39)
[2025-01-20] VITALS (11 sets, daily range): BP systolic 90–112; BP diastolic 61–72; PULSE 72–88; RESP 12–96; TEMP 36–36.3; O2SAT 97–100; BMI 15.1; BMI 15.0
--- NOTE | 2025-01-20 | XR_ITS ---
Examination: Ultrasound-guided needle placement right basilic vein. Dual-lumen central line placement (PICC line). Fluoroscopy AP chest, portable, single view Exam date and time:January 20, 2025 1302 hours INDICATIONS: Need for long-term intravenous medication A timeout was completed verifying correct patient, procedure, site, positioning Informed consent provided Technique: The patient's site was prepped and draped in sterile fashion. Maximum Sterile Barrier Technique used including cap, mask, sterile gown, sterile gloves, and sterile full body drape. If ultrasound technique used: sterile gel and sterile probe covers. Hand Hygiene performed using proper scrub, soap and water, or alcohol-based hand rub. Site right portable apparatus utilized to confirm patency of the right basilic vein Utilizing ultrasonographic guidance successful 21-gauge needle puncture into the right basilic vein Ultrasound images recorded and stored. 5 cc 1% lidocaine administered for local anesthetic. Successful micropuncture with a 21-gauge needle is performed. 0.18 wire guide is then introduced into the SVC under fluoroscopic guidance. Dual-lumen catheter dilator is then introduced, followed by the catheter in the SVC and proper position under fluoroscopic guidance. Successful aspiration of blood and flushing with heparinized saline is then performed in the 2 venous limbs. The catheter sutured in place. Findings: Under fluoroscopy, the tip of the catheter is in good position in the vena cava. Portable chest x-ray, post line placement is ordered. Estimated blood loss 3 cc The patient tolerated the procedure well and was in stable and satisfactory condition at completion of the procedure Impression: Successful ultrasound-guided needle placement right basilic vein Successful placement of dual lumen central line, percutaneous Fluoroscopy 1 minute radiation dose 1.40 milligray 1 spot fluoroscopic chest film AP chest completion procedure demonstrates satisfactory position central line. May use central line.
[2025-01-20] MEDS: ALBUMIN HUMAN-KJDA 25% IVPB 25 GM/100 ML BTL IV ×2 (00:16→21:21)
[2025-01-20] MEDS: RINGERS LACTATED 1000 ML 1,000 ML 200 ML IV (03:30)
[2025-01-20] MEDS: LACTULOSE SYRUP 20 GM/30 ML UDC PO (05:10)
--- NOTE | 2025-01-20 06:01 | PC.NURSE ---
MD Saleem made aware of patient only IV access has become infilitrated. stated they will speak to day team about possible central line placement.
[2025-01-20] MEDS: HEPARIN SOD INJ 5000 UNIT/ML VIAL SC ×2 (09:19→21:21)
--- NOTE | 2025-01-20 10:29 | PC.NURSE ---
Patient currently does not have IV access. Dr Mickey Kearney and Dr Méndez aware.
[2025-01-20] MEDS: METHADONE HCL 10 MG TABLET 30 MG PO ×2 (10:50→14:17)
--- NOTE | 2025-01-20 11:26 | PC.SS ---
SS spoke to patient's daughter, Yanni, to confirm background of patient. Patient is currently altered. Patient resides with his mother @ [address] Prior to hospitalization patient was fairly independent. However, recently, daughter states patient has been progressively getting more weak and cannot ambulate. Patient needs assistance with ADL's. Daughter states she sees patient daily and helps care for him. Daughter states they'd like patient to return home with home health services and discussed palliative care as well. Patient would benefit from [facility] and [facility] transportation as well as DME. Patient is on methadone and follows at [facility]. Daughter states they already paid for additional equipment like the wheelchair and walker for home. Patient gets a paracentesis with a standing order every 2 weeks. Last paracentesis was on the . PCP: Korina Bashir NP @ [facility]. Last appt. was last week. Alt medical decision maker: Yanni Barr @ [phone] transportation: [facility]
[2025-01-20] MEDS: HEPARIN SOD LOCK SYR 100 UNIT/ML 500 UNIT STFIELD (13:30)
[2025-01-20] MEDS: LIDOCAINE INJ PF 1% 5 ML VIAL 3 ML INFL (13:44)
[2025-01-20] MEDS: LACTULOSE SYRUP 20 GM/30 ML UDC 30 GM PO ×2 (14:18→21:24)
--- NOTE | 2025-01-20 14:51 | ESPR_ITS ---
<Statement entered by Bartolome Kearney MD - 01/20/25 20:40> No acute overnight events. Seen and examined at bedside and family present. Significant difficulty obtaining IV access as lines continue to blow out after administering IVF. Multiple attempts made via charge nurse and nurses from ED without success. Thus, elected for PICC line placement that was placed today for albumin administration as well as blood draws. No BM recorded today so lactoluse increased from 20 to 30 g TID. Given abdominal distention on exam and moderate ascites seen on ultrasound, will order paracentesis. Additionally, if renal function does not improve with albumin administration after today will consider nephrology consultation. Vital signs are stable otherwise and patient mentation appears to be improving as ammonia has downtrended significantly. ----- Note reviewed and agree with care plan as documented. Please refer to the note below for further details. Plan discussed with attending physician Dr. Dez Kearney MD PGY-2 Internal Medicine Documentation for date of: 01/20/25 Subjective Subjective Interval history: Patient was seen and examined at bedside. No acute events took place overnight. Several attempts at establishing IV line failed overnight. As attempts to establish access line continue to blow out, elected for PICC line placement. Overnight team resumed the patient on home methadone. Patient found to be alert and oriented x 4, in no bodily pain. Patient only had a small bowel movement in the morning. Previous bowel movement was last Monday. Exam Vital Signs Temp Pulse Resp BP Pulse Ox O2 Del Method 96.8 F 78 14 103/61 100 Room Air 01/20/25 12:00 01/20/25 13:50 01/20/25 13:50 01/20/25 13:50 01/20/25 13:50 01/20/25 13:50 Narrative Exam General: Patient is drowsy, opens his eyes on questioning but tends to fall back to sleep right away, oriented x 2, not oriented to time, uninterested in conversation HEENT: Normocephalic, atraumatic, EOMI, PERRLA, appears dry Chest: Clear to auscultate bilaterally, no wheezing or crackles CVS: Regular rate and rhythm, S1 and S2 heard without murmur Abdomen: Soft, mild distention, no tenderness, bowel sound present Neuro: Alert but confused, sleepy and unable to participate in exam fully, moving all his limbs, no obvious focal neurological deficit Extremities/skin: Bilateral extremity with chronic stasis skin changes, no edema Objective Labs 01/20/25 15:01 01/20/25 15:01 Labs: Laboratory Results - last 24 hr 01/19/25 01/19/25 01/19/25 13:47 15:30 17:18 Ammonia 98 H* B-Natriuretic Peptide < 20 Ur Collection Type Clean Catch Urine Color Yellow Urine Clarity Clear Urine pH 6.5 Ur Specific [place] 1.024 Urine Protein Negative Urine Glucose (UA) Negative Urine Ketones Negative Urine Blood Negative Urine Nitrite Negative Urine Bilirubin Negative Urine Urobilinogen (Auto) 4.0 Ur Leukocyte Esterase Negative Urine RBC 3 Urine WBC < 1 Ur Squamous Epith Cells < 1 Urine Bacteria Rare Ur Culture Indicated? Not Indicated Urine Opiates Screen Positive A Urine Fentanyl Screen Negative Ur Barbiturates Screen Negative U Amphetamin/Meth Scrn Negative U Benzodiazepines Scrn Negative U Cocaine Metab Screen Negative U Marijuana (THC) Screen Negative Misc Test Result Platelets confirmed Quality Measures Quality Measures none Assessment & Plan Assessment Current Active Medications: Generic Name Dose Route Start Last Admin Trade Name Freq PRN Reason Stop Dose Admin Acetaminophen 650 mg 01/19/25 18:59 Acetaminophen 325 Mg Tablet PO 02/18/25 18:58 Q6H PRN Fever >101.5 Patient Own Medication 1 ea/ 0 ea 01/20/25 09:00 01/20/25 10:30 IV Miscellaneous Supplies 1 PO 02/19/25 08:59 Not Given btl QDAY JAYNE On Hold: 01/20/25 09:41 Protocol Comment: CHANGED TO TABLETS. PATIENT STATES HE CANNOT TAKE ENTIRE MEDICATION AT ONE AND SIPS ON MED THROUGHOUT THE DAY . PATIENT OKAY WITH TAKING TABLETS. CALLED AND SPOKE WITH MD JOSH COX TO CHANGE TO TABLETS. SWITCHING ORDER TO 30 MG BID @ 0900,1400 AND A SEPARATE ORDER FOR 25 MG TO MAKE A TOTAL DAILY DOSE OF 85 MG Heparin Sodium (Porcine) 5,000 unit 01/19/25 21:00 01/20/25 09:19 Heparin Sod Inj 5000 Unit/Ml Vial SC 02/02/25 20:59 5,000 unit Q12HR JAYNE Administration Albumin Human 25 gm in 100 mls @ 100 mls/hr 01/19/25 23:15 01/20/25 09:20 Albuminex 25% Ivpb IV 02/18/25 23:14 Not Given BID JAYNE Lactulose 30 gm 01/20/25 14:00 01/20/25 14:18 Lactulose Syrup 20 Gm/30 Ml Udc PO 02/19/25 13:59 30 gm TID JAYNE Administration Protocol Methadone HCl 25 mg 01/20/25 21:00 Methadone Hcl 10 Mg Tablet PO 01/25/25 20:59 HS JAYNE Protocol Methadone HCl 30 mg 01/20/25 10:00 01/20/25 14:17 Methadone Hcl 10 Mg Tablet PO 01/25/25 09:59 30 mg BID@0900,1400 JAYNE Administration Protocol Ondansetron HCl 4 mg 01/19/25 18:59 Ondansetron Inj 2 Mg/Ml Inj 2 Ml IVP 02/18/25 18:58 Q6H PRN NAUSEA OR VOMITING Protocol Plan 59 years old male with past medical history of liver cirrhosis presented with confusion, generalized weakness and decreased oral intake being admitted for management of acute hepatic encephalopathy, decompensated liver cirrhosis, MARTY and electrolyte imbalances. #Acute encephalopathy #Decompensated liver cirrhosis Patient has been confused since 3 days back, has been having decreased oral intake and not making sense while talking to the family He has been diagnosed with liver cirrhosis, undergoes scheduled paracentesis with radiology. Removed 7.6L on 01/08 and 10.2L on 12/26. Unclear cause, possibly secondary to hepatitis C, family stated patient only drank occasionally Has a bilirubin of 1.7, AST 68 ammonia 98, ammonia level was 187 on 01/17/2025. PT/INR was 12.6/1.2 Abdomen/pelvis CT from 11/28/2024 showed cirrhosis, esophageal and perigastric varices Liver ultrasound showed moderate ascites. B ctx were negative 2/2 bottles after 48h Increased lactulose 30 g 3 times daily, goal of 3-4 bowel movements per day Order placed for paracentesis Frequent neurochecks, swallow screen before restarting diet If mentation does not improve, we will consider brain imaging and neurology consult #MARTY #Rule out hepatorenal syndrome Possibly prerenal in setting of poor oral intake, cannot rule out hepatorenal syndrome Patient has BUN/creatinine of 41/1.5, slightly improved compared to 38/1.8 on 01/17/2025, baseline appears to be 1.0-1.1 Patient received IV fluid in the ED Started on albumin 25 g twice daily, will closely monitor renal function for 48 hours Avoid nephrotoxins, strict ins and outs Ordered urine electrolytes and urine creatinine #Hyperkalemia Insetting of MARTY, no signs of active bleeding, stable hemoglobin Received temporizing measures and fluid in the ED We will monitor closely #Hepatitis C Patient noted to have hepatitis C antibody reactivity in 10/23/2020 We will obtain HCVRNA and hepatitis C antibody Patient will need further outpatient follow-up/treatment #Failure to thrive As per daughter patient has been having significant unintentional weight loss, temporal wasting Has been having poor oral intake Albumin is 3.1 We will obtain registered dietitian consult, encourage patient to have good oral intake. #Thrombocytopenia Patient noted to have platelets of 52, likely secondary to cirrhosis No signs of active bleeding, we will monitor closely Disposition: Telemetry for management of acute encephalopathy Peripheral line: PICC line CODE STATUS: Full code Diet: Regular diet DVT prophylaxis: Heparin SC Sharmaine Garces MD Attending Provider Attestation/Addendum I attest that I was physically present for the evaluation, physical examination, lab and imaging review of the patient with the residents. I discussed the case with the residents and agree with the findings and plans of care as documented above. Patient seen and examined at bedside this morning. Unable to have any lab draws or IV albumin infusion as he did not have any peripheral IV access despite being notified by electrical project engineer, RNs and ultrasound assistance. Discussed with the patient, agreed on PICC line placement for blood draws and IV therapies. Vital signs are stable. Patient appears more alert and awake, able to answer questions and follow commands appropriately. Did not have any bowel movement since admission, we will increase the dose of lactulose from 20 to 30 g 3 times daily. Kidney function did not show much improvement, BUN/creatinine of 37/1.6 today. Will continue with IV albumin infusion challenge, if fails to improve, we will consider nephrology consult. Patient noted to have slightly increased distention of his abdomen compared to yesterday. abdominal ultrasound yesterday showed moderate ascites we will obtain paracentesis. Blood cultures have been negative for more than 48 hours. Sharmaine Garces MD
[2025-01-20 15:16] LABS: Basophils # (Auto) 0.0 Thou/mm3 (0.0-0.2); Basophils % (Auto) 1 % (0-2.5); Eosinophils # (Auto) 0.2 Thou/mm3 (0.0-0.5); Eosinophils % (Auto) 2 % (0-10); Hematocrit 36.4 % (41.0-53.0); Hemoglobin 11.7 g/dL (13.5-16.0); Immature Granulocytes Auto 0.03 Thou/mm3 (0.00-0.00); Lymphocytes # (Auto) 0.9 Thou/mm3 (1.0-4.8); Lymphocytes % (Auto) 11 % (10-50); Mean Corpuscular HGB Conc 32.1 g/dl (31.0-37.0); Mean Corpuscular Hemoglobin 27.5 pg (25.0-35.0); Mean Corpuscular Volume 86 fL (80-100); Monocytes # (Auto) 0.6 Thou/mm3 (0.0-0.8); Monocytes % (Auto) 6 % (0-12); Neutrophils # (Auto) 7.0 Thou/mm3 (1.8-7.7); Neutrophils % (Auto) 80 % (37-80); Nucleated Red Blood Cell # 0.00 Thou/mm3 (0.00-0.00); Nucleated Red Blood Cell % 0 /100 WBC (0); RDW Standard Deviation 56.5 fL (35.1-43.9); Red Blood Count 4.25 Miln/mm3 (4.50-5.90); White Blood Count 8.7 Thou/mm3 (3.8-10.6)
[2025-01-20 15:28] LABS: Glucose Estimated Average 91 mg/dL (80-131); Hemoglobin A1C 4.8 % Hgb (4.8-6.0)
[2025-01-20 15:40] LABS: Alanine Aminotransferase 36 U/L (10-49); Albumin, Serum 2.9 gm/dL (3.4-4.8); Albumin/Globulin Ratio 0.9 (1.2-2.2); Alkaline Phosphatase 100 U/L (46-116); Anion Gap 7 (7-16); Aspartate Amino Transferase 44 U/L (0-34); BUN/Creatinine Ratio 23 Ratio (12-20); Bilirubin,Total 1.3 mg/dL (0.3-1.2); Blood Urea Nitrogen 37 mg/dL (9-23); Calcium 9.0 mg/dL (8.3-10.6); Calcium (Corrected) 9.9 mg/dL (8.5-10.1); Carbon Dioxide 21.7 mMol/L (20.0-31.0); Cardiac Risk Estimate 3.1 RATIO (4.0-6.7); Chloride 107 mMol/L (98-107); Cholesterol 94 mg/dL (132-200); Creatinine (Component) 1.6 mg/dL (0.6-1.3); Estimated Creatinine Clearance 31.5 mL/min (>60); Globulin 3.4 gm/dL (2.3-3.5); Glucose 142 mg/dL (74-106); HDL Cholesterol 30 mg/dL (40-60); LDL Cholesterol,Calculated 54 mg/dL (0-130); Magnesium 2.2 mg/dL (1.6-2.6); Osmolality,Calculated 282 (275-295); Phosphorous 4.1 mg/dL (2.4-5.1); Potassium 4.5 mMol/L (3.4-5.1); Sodium 136 mMol/L (136-145); Thyroid Stimulating Hormone 9.00 uIU/mL (0.55-4.78); Total Protein 6.3 gm/dL (5.7-8.2); Triglycerides 49 mg/dL (30-150); eGFR 49 See Note
[2025-01-20 16:03] LABS: Platelet Count 57 Thou/mm3 (140-440)
[2025-01-20 16:12] LABS: Hepatitis C Antibody Reactive (Non React)
[2025-01-20 16:23] LABS: Slide Review Platelets confirmed
[2025-01-20] MEDS: METHADONE HCL 10 MG TABLET 25 MG PO (21:22)
--- NOTE | 2025-01-20 21:38 | PC.NURSE ---
Patients caregiver ok to spend the night as a helper for patient
[2025-01-21] VITALS (11 sets, daily range): BP systolic 92–126; BP diastolic 56–83; PULSE 60–105; RESP 12–97; TEMP 35.9–36.1; O2SAT 96–100; BMI 21.5
--- NOTE | 2025-01-21 05:00 | XR_ITS ---
Examination: Ultrasound-guided paracentesis Abdominal sonogram limited Date and time of exam: January 21, 2025, 1034 hours INDICATIONS: Cirrhosis increasing distention abdominal pain this week Informed consent provided. A timeout was completed verifying correct patient, procedure, site, positioning, and special adequate movement if applicable. Technique: Multiple sonographic images of the abdomen have been obtained. Appropriate area for paracentesis was marked. Local anesthesia is obtained with 1% lidocaine. Yueh catheter is successfully introduced. Findings: Abdominal sonographic images demonstrate sufficient ascitic fluid for paracentesis. After placing the Yueh catheter, 5600 cc of fluid were successfully removed. During and after completion of the procedure the patient appear in satisfactory and stable condition with no complications observed. Estimated blood loss 0 cc Impression: Abdominal ascites Successful ultrasound-guided paracentesis as described above
[2025-01-21] MEDS: ONDANSETRON INJ 2 MG/ML INJ 2 ML 4 MG IVP (05:30)
[2025-01-21 05:39] LABS: Basophils # (Auto) 0.0 Thou/mm3 (0.0-0.2); Basophils % (Auto) 1 % (0-2.5); Eosinophils # (Auto) 0.2 Thou/mm3 (0.0-0.5); Eosinophils % (Auto) 3 % (0-10); Hematocrit 35.3 % (41.0-53.0); Hemoglobin 11.2 g/dL (13.5-16.0); Immature Granulocytes Auto 0.02 Thou/mm3 (0.00-0.00); Lymphocytes # (Auto) 0.9 Thou/mm3 (1.0-4.8); Lymphocytes % (Auto) 11 % (10-50); Mean Corpuscular HGB Conc 31.7 g/dl (31.0-37.0); Mean Corpuscular Hemoglobin 27.7 pg (25.0-35.0); Mean Corpuscular Volume 87 fL (80-100); Monocytes # (Auto) 0.7 Thou/mm3 (0.0-0.8); Monocytes % (Auto) 9 % (0-12); Neutrophils # (Auto) 6.2 Thou/mm3 (1.8-7.7); Neutrophils % (Auto) 77 % (37-80); Nucleated Red Blood Cell # 0.00 Thou/mm3 (0.00-0.00); Nucleated Red Blood Cell % 0 /100 WBC (0); RDW Standard Deviation 58.7 fL (35.1-43.9); Red Blood Count 4.04 Miln/mm3 (4.50-5.90); White Blood Count 8.1 Thou/mm3 (3.8-10.6)
[2025-01-21 05:58] LABS: Platelet Count 62 Thou/mm3 (140-440)
[2025-01-21 06:01] LABS: Alanine Aminotransferase 32 U/L (10-49); Albumin, Serum 3.1 gm/dL (3.4-4.8); Albumin/Globulin Ratio 0.9 (1.2-2.2); Alkaline Phosphatase 94 U/L (46-116); Anion Gap 9 (7-16); Aspartate Amino Transferase 40 U/L (0-34); BUN/Creatinine Ratio 24 Ratio (12-20); Bilirubin,Total 1.4 mg/dL (0.3-1.2); Blood Urea Nitrogen 39 mg/dL (9-23); Calcium 8.8 mg/dL (8.3-10.6); Calcium (Corrected) 9.5 mg/dL (8.5-10.1); Carbon Dioxide 20.6 mMol/L (20.0-31.0); Chloride 107 mMol/L (98-107); Creatinine (Component) 1.6 mg/dL (0.6-1.3); Estimated Creatinine Clearance 44.8 mL/min (>60); Globulin 3.3 gm/dL (2.3-3.5); Glucose 98 mg/dL (74-106); LDH (Lactate Dehydrogenase) 163 U/L (120-246); Magnesium 2.1 mg/dL (1.6-2.6); Osmolality,Calculated 283 (275-295); Phosphorous 4.6 mg/dL (2.4-5.1); Potassium 4.6 mMol/L (3.4-5.1); Sodium 137 mMol/L (136-145); Total Protein 6.4 gm/dL (5.7-8.2); eGFR 49 See Note
[2025-01-21] MEDS: LACTULOSE SYRUP 20 GM/30 ML UDC 30 GM PO ×3 (06:18→22:16)
[2025-01-21] MEDS: ALBUMIN HUMAN-KJDA 25% IVPB 25 GM/100 ML BTL IV ×2 (09:23→20:06)
[2025-01-21] MEDS: METHADONE HCL 10 MG TABLET 30 MG PO ×2 (09:24→13:38)
[2025-01-21] MEDS: HEPARIN SOD INJ 5000 UNIT/ML VIAL SC ×2 (09:28→20:06)
[2025-01-21 11:35] LABS: Slide Review Platelets confirmed
[2025-01-21 12:41] LABS: Peritoneal Fluid WBC 274 /cmm
[2025-01-21 12:47] LABS: Peritoneal Fluid Appearance Hazy; Peritoneal Fluid Color Yellow; Peritoneal Fluid Mononuclear 89 %; Peritoneal Fluid Polynuclear 11 %; RBC,Peritoneal Fluid 17000 /cmm
[2025-01-21 12:55] LABS: Albumin, Peritoneal Fluid < 1.0 gm/dL; Amylase,Peritoneal Fluid 26 IU/L; Glucose,Peritoneal Fluid 113 mg/dL; LDH,Peritoneal Fluid 64 IU/L; Protein Total,Peritoneal Fluid < 2 g/dL
--- NOTE | 2025-01-21 13:11 | ESPR_ITS ---
<Statement entered by Bartolome Kearney MD - 01/21/25 13:54> No acute overnight events. Seen and examined at bedside and brother states that patient has had 4-5 BMs of 1 single small pellet since yesterday. Patient is alert and oriented x 3 and will continue current lactulose regimen. Underwent paracentesis and removed 5600 cc of pleural fluid, currently on albumin 25 g BID. Given lack of improvement in renal function after 48 hours of albumin, will consult nephrology for further recommendations. Fluid studies show hazy, yellow fluid with 17,000 RBC, 274 WBC, and SAAG of 2.1 which is supportive of portal hypertension. Vital signs stable, hemoglobin stable, and renal function unchanged. ----- Note reviewed and agree with care plan as documented. Please refer to the note below for further details. Plan discussed with attending physician Dr. Shirley Kearney MD PGY-2 Internal Medicine Documentation for date of: 01/21/25 Subjective Subjective Interval history: Patient was seen and examined at bedside. No acute events took place overnight. alert, oriented, Patient ate only a bite of his hamburger yesterday and one half of an orange served for this morning breakfast. Patient had 4oz of emesis this AM. Patient had 4-5 pellet sized BM yesterday, and another earlier in the morning. Family will encourage the patient to drink and eat more to remove as much ammonia from his system as possible. Scheduled for paracentesis today. Exam Vital Signs Temp Pulse Resp BP Pulse Ox O2 Del Method 96.9 F 74 16 109/66 97 Room Air 01/21/25 12:00 01/21/25 12:00 01/21/25 12:01/21/25 12:00 01/21/25 12:01/21/25 12:00 Narrative Exam General: Patient is underweight, appears weak and uninterested in conversation, alert and oriented x3 HEENT: Normocephalic, atraumatic, EOMI, PERRLA, appears dry Chest: Clear to auscultate bilaterally, no wheezing or crackles CVS: Regular rate and rhythm, S1 and S2 heard without murmur Abdomen: Soft, mild distention, no tenderness, bowel sound present Neuro: Alert but confused, sleepy and unable to participate in exam fully, moving all his limbs, no obvious focal neurological deficit Extremities/skin: Bilateral extremity with chronic stasis skin changes, no edema Objective Labs 01/22/25 05:20 01/22/25 05:20 Labs: Laboratory Results - last 24 hr 01/20/25 01/21/25 01/21/25 15:01 05:05 11:45 WBC 8.7 8.1 RBC 4.25 L 4.04 L Hgb 11.7 L 11.2 L Hct 36.4 L 35.3 L MCV 86 87 MCH 27.5 27.7 MCHC 32.1 31.7 RDW Std Deviation 56.5 H 58.7 H Plt Count 57 L 62 L Neut % (Auto) 80 77 Lymph % (Auto) 11 11 Stanley % (Auto) 6 9 Eos % (Auto) 2 3 Baso % (Auto) 1 1 Neut # (Auto) 7.0 6.2 Lymph # (Auto) 0.9 L 0.9 L Stanley # (Auto) 0.6 0.7 Eos # (Auto) 0.2 0.2 Baso # (Auto) 0.0 0.0 Immature Gran # (Auto) 0.03 H 0.02 H Absolute Nucleated RBC 0.00 0.00 Immature Gran % 0 0 Nucleated RBC % 0 0 Sodium 136 137 Potassium 4.5 D 4.6 Chloride 107 107 Carbon Dioxide 21.7 20.6 Anion Gap 7 9 BUN 37 H 39 H Creatinine 1.6 H 1.6 H Estim Creat Clear Calc 31.5 L 44.8 L eGFR 49 L 49 L BUN/Creatinine Ratio 23 H 24 H Glucose [address] Glu mg/dL 91 Hemoglobin A1c 4.8 Calculated Osmolality 282 283 Calcium 9.0 8.8 Corrected Calcium 9.9 9.5 Phosphorus 4.1 4.6 Magnesium 2.2 2.1 Total Bilirubin 1.3 H 1.4 H AST 44 H 40 H ALT 36 32 Alkaline Phosphatase 100 94 Lactate Dehydrogenase 163 Total Protein 6.3 6.4 Albumin 2.9 L 3.1 L Globulin 3.4 3.3 Albumin/Globulin Ratio 0.9 L 0.9 L Triglycerides 49 Cholesterol 94 L LDL Cholesterol, Calc 54 HDL Cholesterol 30 L Cholesterol/HDL Ratio 3.1 L TSH 9.00 H Peritoneal Color Yellow Peritoneal Appearance Hazy Peritoneal WBC 274 [place] [address] Periton Polynucl WBCs 11 Periton Mononucl WBCs 89 Peritoneal Tot Protein < 2 Peritoneal Albumin < 1.0 Peritoneal LDH 64 Peritoneal Glucose 113 Peritoneal Amylase 26 Hepatitis C Antibody Reactive A Misc Test Result Platelets confirmed Platelets confirmed Quality Measures Quality Measures none Assessment & Plan Assessment Current Active Medications: Generic Name Dose Route Start Last Admin Trade Name Cruz PRN Reason Stop Dose Admin Acetaminophen 650 mg 01/19/25 18:59 Acetaminophen 325 Mg Tablet PO 02/18/25 18:58 Q6H PRN Fever >101.5 Patient Own Medication 1 ea/ 0 ea 01/20/25 09:00 01/20/25 10:30 IV Miscellaneous Supplies 1 PO 02/19/25 08:59 Not Given btl QDAY JAYNE On Hold: 01/20/25 09:41 Protocol Comment: CHANGED TO TABLETS. PATIENT STATES HE CANNOT TAKE ENTIRE MEDICATION AT ONE AND SIPS ON MED THROUGHOUT THE DAY . PATIENT OKAY WITH TAKING TABLETS. CALLED AND SPOKE WITH MD CHRISTEL COX TO CHANGE TO TABLETS. SWITCHING ORDER TO 30 MG BID @ 0900,1400 AND A SEPARATE ORDER FOR 25 MG TO MAKE A TOTAL DAILY DOSE OF 85 MG Heparin Sodium (Porcine) 5,000 unit 01/19/25 21:00 01/21/25 09:28 Heparin Sod Inj 5000 Unit/Ml Vial SC 02/02/25 20:59 5,000 unit Q12HR JAYNE Administration Albumin Human 25 gm in 100 mls @ 100 mls/hr 01/19/25 23:15 01/21/25 11:52 Albuminex 25% Ivpb IV 02/18/25 23:14 100 mls/hr BID JAYNE Infusion Lactulose 30 gm 01/20/25 14:00 01/21/25 06:18 Lactulose Syrup 20 Gm/30 Ml Udc PO 02/19/25 13:59 30 gm TID JAYNE Administration Protocol Methadone HCl 25 mg 01/20/25 21:00 01/20/25 21:22 Methadone Hcl 10 Mg Tablet PO 01/25/25 20:59 25 mg HS JAYNE Administration Protocol Methadone HCl 30 mg 01/20/25 10:00 01/21/25 09:24 Methadone Hcl 10 Mg Tablet PO 01/25/25 09:59 30 mg BID@0900,1400 JAYNE Administration Protocol Ondansetron HCl 4 mg 01/19/25 18:59 01/21/25 05:30 Ondansetron Inj 2 Mg/Ml Inj 2 Ml IVP 02/18/25 18:58 4 mg Q6H PRN Administration NAUSEA OR VOMITING Protocol Plan 59 years old male with past medical history of liver cirrhosis presented with confusion, generalized weakness and decreased oral intake being admitted for management of acute hepatic encephalopathy, decompensated liver cirrhosis, MARTY and electrolyte imbalances. #Acute encephalopathy #Decompensated liver cirrhosis #Hyperammonemia Patient has been confused since 3 days back, has been having decreased oral intake and not making sense while talking to the family He has been diagnosed with liver cirrhosis, undergoes scheduled paracentesis with radiology. Removed of peritoneal fluid 7.6L on 01/08 and 10.2L on 12/26. Unclear cause, possibly secondary to hepatitis C, family stated patient only drank occasionally Has a bilirubin of 1.7, AST 68 ammonia 98, ammonia level was 187 on 01/17/2025. PT/INR was 12.6/1.2 Abdomen/pelvis CT from 11/28/2024 showed cirrhosis, esophageal and perigastric varices Liver ultrasound showed moderate ascites. B ctx were negative 2/2 bottles after 48h 01/21: Underwent paracentesis and 5.6L of pleural fluid was removed. Fluid studies show hazy, yellow fluid with 17,000 RBC, 274 WBC, and SAAG of >2.1 which is supportive of portal hypertension. Plan: Lactulose 30 g 3 times daily, goal of 3-4 bowel movements per day Frequent neurochecks If mentation does not improve, we will consider brain imaging and neurology consult #MARTY #Prerenal Azotemia #Rule out hepatorenal syndrome Possibly prerenal in setting of poor oral intake, cannot rule out hepatorenal syndrome Patient has BUN/creatinine of 41/1.5, slightly improved compared to 38/1.8 on 01/17/2025, baseline appears to be 1.0-1.1 Patient received IV fluid in the ED Given lack of improvement in kidney function marker, BUN/Cr: 39/1.6, -consistent with prerenal azotemia, -for 48h with albumen treatment, nephrology is consulted. Plan: nephrology consulted, appreciate recs. Started on albumin 25 g twice daily, will closely monitor renal function for 48 hours midodrine PO 10mg bid Avoid nephrotoxins, strict ins and outs Ordered urine electrolytes and urine creatinine midodrine PO 10mg bid #Hyperkalemia Insetting of MARTY, no signs of active bleeding, stable hemoglobin Received temporizing measures and fluid in the ED We will monitor closely #Hepatitis C Patient noted to have hepatitis C antibody reactivity (01/20) pending HCVRNA and hepatitis C antibody Patient will need further outpatient follow-up/treatment #Failure to thrive As per daughter patient has been having significant unintentional weight loss, temporal wasting Has been having poor oral intake Albumin is 3.1 We will obtain registered dietitian consult, encourage patient to have good oral intake. #Thrombocytopenia Patient noted to have platelets of 52, likely secondary to cirrhosis No signs of active bleeding, we will monitor closely #Chronic pain on methadone PO 30mg bid Disposition: Telemetry for management of acute encephalopathy Peripheral line: PICC line CODE STATUS: Full code Diet: Regular diet DVT prophylaxis: Heparin SC This case was discussed with my attending physician, Dr. Watson, and senior resident, Dr. Christel Arevalo. Katy Grady, DO PGY I Attending Provider Attestation/Addendum I have examined the patient, reviewed labs and imaging findings, discussed the case with the resident(s), and reviewed entered orders. I agree with the plan of care as outlined in this note, with these additional summaries/recommendations: Patient seen at bedside. No acute overnight events. Patients hepatic encephalopathy has significantly improved/resolved. Continue lactulose and titrate to 2-3 bowel movements a day. No need for rifaximin as mental status continues to improve. Patient has underlying cirrhosis secondary to untreated hepatitis C infection. Viral load pending and advised to follow-up with PCP for initiation of antiviral therapy as desired. Outpatient follow-up with gastroenterology. Patient will be evaluated for repeat paracentesis. Acute kidney injury present which is most likely secondary to hepatorenal syndrome versus less likely prerenal azotemia. Patient has had no improvement and we will consult nephrology for recommendations. Continue methadone for chronic pain management. Patient was seen by physical therapy and no further needs at this time. Patient updated on the plan and in agreement. All questions answered to satisfaction. Please see residents note for additional details and management. Dr. Shirley MD
--- NOTE | 2025-01-21 15:03 | ESCONSULT_ITS ---
HPI Data of Consult Consult date: 01/21/25 Requesting Physician: Kalia Watson MD Admitting Provider: Sharmaine Garces MD Attending Provider: Kalia Watson MD Primary Care Provider: Korina Bashir NP Consult Narrative Reason for consult: MARTY History of present illness: History of Present Illness: 59y/o with PMH of liver cirrhosis, remote history of drug abuse, and cellulitis of left leg, presented to the hospital on 01/19/2025 due to lethargy and generalized weakness. The symptom started last (01/16) where he repeatedly became weak and lethargic. Before coming to the hospital he was found unresponsive by his family. Patient has been underogoing therapeutic paracentesis every 2 weeks since his diagnosis of cirrhosis. Notably, he has previously experienced increased lethargy prior to scheduled sesssions, propting a decrease in interval to weekly paracentesis. However, htis time his paracentesis interval was extrended to two weeks, during which his lethargy progressively worsenend, leading to his presentation to the ER. Patient has been admitted for management of cirrhosis Nephrology has been consulted for management of MARTY. ED course: In the ED, initial vitals were within normal limits, blood pressure on softer side, 92/59 this evening. Saturating well on room air. EKG was done, shows sinus rhythm and low voltage. Lab results show platelets of 52, potassium 5.5, BUN/creatinine 41/1.5, baseline appears to be around 1.0-1.1 also has total bilirubin of 1.7, AST 68, ammonia 98, LDH 296, albumin 3.1. Urinalysis did not show any signs of infection. Drug screen were positive for opiates. Patient also noted to have positive hepatitis C antibody studies in 2020. She received ondansetron, calcium gluconate, insulin, D5 W, lactulose and LR in the ED. After examination of the patient and review of the clinical data I feel that this patient needs admission to the hospital for further treatment/evaluation of hepatic encephalopathy, decompensated liver cirrhosis, MARTY and hyperkalemia. Past medical history: Liver cirrhosis Social history: Lives with his mother, has history of smoking, used to drink occasionally, used to use illicit drugs, cocaine, including IV route 01/21/2025: Labs reviewed and patient examined at the bedside. Upon admission, BUN 38 (Baseline of 15) , Cr 1.8 (Baseline of 1.1), eGFR 43 (Baseline: GFR >60) and Currently: BUN: 39, Cr:1.6, eGFR:49. Patient's Cr has remained fairly high through out the stay and no improvement although 2 days of 25g Albumin. Patient did not have shock, No recent contrast or nephrotoxic drugs. In UA, Urine protein was negative, Urine RBC was 3. Based on the presentation above, with past medical history of cirrhosis, it is likely the patient progressing towards hepatorenal syndrome. However, Patient received paracentesis on 01/21 that drained 5600cc of fluid which might have contributed to lack of improvement to Cr levels. Will need to order renal Ultrasound to make sure no structural kidney injury. Urine electrolyte, Urine creatinine ordered. Continue on albumin treatment. Midodrine ordered. Recommend Octreotide if suspect bleeding. Terlipressin is unavailable at the hospital. Patient is alert and awake. Complains of mild generalized abdominal pain. Denies chest pain, palpation, SOB, N/V, fevers or chills. cc:: cc: Kalia Watson MD Review of Systems Review of Systems Narrative Review of Systems: All 12 systems assessed and the patient denies unless otherwise stated in HPI Exam Vital Signs Temp Pulse Resp BP Pulse Ox O2 Del Method 96.9 F 74 16 109/66 97 Room Air 01/21/25 12:01/21/25 12:01/21/25 12:01/21/25 12:01/21/25 12:01/21/25 12:00 Narrative Exam General: No acute distress, AAO x3, elderly, frail Eye: PERRL, EOMI, normal conjunctiva, no scleral icterus HENT: Normocephalic, atraumatic, hearing intact to conversation at normal volume, moist oral mucosa Neck: Supple, non-tender, no JVD, no lymphadenopathy Lungs: Non-labored respirations, symmetric chest rise, Clear to auscultate bilaterally, No wheezing, rhonchi, crackles Heart: Peripheral pulses intact bilaterally, Regular Rate and Rhythm. Abdomen: Soft, non-tender, non-distended, no palpable masses Musculoskeletal: No cyanosis or edema, No visible joint swelling, left knee with residual hyperpigmentation secondary to prior cellulitis. Skin: Skin is warm, dry, no rashes or lesions. Psychiatric: Cooperative, appropriate mood and affect, Awake and alert, not agitated Neuro: Cranial nerves II-XII grossly intact. Sensations intact to light touch. Results Labs 01/22/25 09:32 01/22/25 05:20 Labs: Short CBC 01/20/25 01/21/25 Range/Units 15:01 05:05 WBC 8.7 8.1 (3.8-10.6) Thou/mm3 Hgb 11.7 L 11.2 L (13.5-16.0) g/dL Hct 36.4 L 35.3 L (41.0-53.0) % Plt Count 57 L 62 L (140-440) Thou/mm3 BMP 01/20/25 01/21/25 15:01 05:05 Sodium 136 137 Potassium 4.5 D 4.6 Chloride 107 107 Carbon Dioxide 21.7 20.6 BUN 37 H 39 H Creatinine 1.6 H 1.6 H Glucose 142 H 98 Calcium 9.0 8.8 Liver Function 01/20/25 01/21/25 Range/Units 15:01 05:05 Total Bilirubin 1.3 H 1.4 H (0.3-1.2) mg/dL AST 44 H 40 H (0-34) U/L ALT 36 32 (10-49) U/L Alkaline Phosphatase 100 94 (46-116) U/L Albumin 2.9 L 3.1 L (3.4-4.8) gm/dL Quality Measures Quality Measures none Medications Home Medications and Allergies Home Medications ?Medication ?Instructions ?Recorded ?Confirmed ?Type methadone 10 mg/mL oral 85 mg PO QDAY 01/20/2501/20 History concentrate (Methadose) Allergies Allergy/AdvReac Type Severity Reaction Status Date / Time No Known Allergies Allergy Verified 12/13/24 07:20 Visit Medications Acetaminophen (Acetaminophen 325 Mg Tablet) 650 mg PO Q6H PRN PRN Reason: Fever >101.5 Stop: 02/18/25 18:58 Patient Own Medication 1 ea/IV Miscellaneous Supplies 1 btl 0 ea PO QDAY [facility]; Protocol On Hold: 01/20/25 09:41 Comment: CHANGED TO TABLETS. PATIENT STATES HE CANNOT TAKE ENTIRE MEDICATION AT ONE AND SIPS ON MED THROUGHOUT THE DAY. PATIENT OKAY WITH TAKING TABLETS. CALLED AND SPOKE WITH MD JOSH COX TO CHANGE TO TABLETS. SWITCHING ORDER TO 30 MG BID @ 0900,1400 AND A SEPARATE ORDER FOR 25 MG TO MAKE A TOTAL DAILY DOSE OF 85 MG Stop: 02/19/25 08:59 Last Admin: 01/20/25 10:30 Dose: Not Given Heparin Sodium (Porcine) (Heparin Sod Inj 5000 Unit/Ml Vial) 5,000 unit SC Q12HR JAYNE Stop: 02/02/25 20:59 Last Admin: 01/21/25 09:28 Dose: 5,000 unit Albumin Human (Albuminex 25% Ivpb) 25 gm in 100 mls @ 100 mls/hr IV BID JAYNE Stop: 02/18/25 23:14 Last Infusion: 01/21/25 11:52 Dose: 100 mls/hr Lactulose (Lactulose Syrup 20 Gm/30 Ml Udc) 30 gm PO TID [facility]; Protocol Stop: 02/19/25 13:59 Last Admin: 01/21/25 13:39 Dose: 30 gm Methadone HCl (Methadone Hcl 10 Mg Tablet) 25 mg PO HS [facility]; Protocol Stop: 01/25/25 20:59 Last Admin: 01/20/25 21:22 Dose: 25 mg Methadone HCl (Methadone Hcl 10 Mg Tablet) 30 mg PO BID@0900,1400 [facility]; Protocol Stop: 01/25/25 09:59 Last Admin: 01/21/25 13:38 Dose: 30 mg Midodrine (Midodrine 5 Mg Tablet) 10 mg PO BID [facility] Stop: 02/20/25 14:14 Ondansetron HCl (Ondansetron Inj 2 Mg/Ml Inj 2 Ml) 4 mg IVP Q6H PRN; Protocol PRN Reason: NAUSEA OR VOMITING Stop: 02/18/25 18:58 Last Admin: 01/21/25 05:30 Dose: 4 mg Discontinued Medications Albumin Human (Albumin Human-Kjda 25% Ivpb 25 Gm/100 Ml Btl) 25 gm IV Q12HR JAYNE Stop: 02/18/25 20:59 Last Admin: 01/20/25 11:37 Dose: Not Given Calcium Gluconate (Calcium Gluconate 10% Inj 1 Gm/10 Ml Vial) 1 gm IV X1 ONE Stop: 01/19/25 15:14 Last Admin: 01/19/25 16:26 Dose: 1 gm Dextrose (Dextrose 50%-Water Inj 50 Ml Syringe) 50 ml IVP X1 ONE Stop: 01/19/25 15:14 Last Admin: 01/19/25 16:33 Dose: 50 ml Heparin Sodium (Beef Lung) (Heparin Sod Lock Syr 100 Unit/Ml) 500 unit STFIELD X1 ONE Stop: 01/20/25 13:01 Last Admin: 01/20/25 13:30 Dose: 500 unit Lactated Ringer's (Lactated Ringers) 1,000 mls @ 999 mls/hr IV .Q1H1M ONE Stop: 01/19/25 14:26 Last Admin: 01/19/25 14:02 Dose: 999 mls/hr Lactated Ringer's (Lactated Ringers) 1,000 mls @ 999 mls/hr IV .Q1H1M ONE Stop: 01/19/25 16:14 Last Admin: 01/20/25 03:30 Dose: 200 mls/hr Insulin Human Regular (Insulin Hum Regular 1 Unit/0.01 Ml (Per Unit)) 5 unit IV X1 ONE Stop: 01/19/25 15:14 Last Admin: 01/19/25 16:40 Dose: 5 unit Lactulose (Lactulose Syrup 20 Gm/30 Ml Udc) 20 gm PO X1 ONE; Protocol Stop: 01/19/25 18:11 Last Admin: 01/19/25 18:47 Dose: 20 gm Lactulose (Lactulose Syrup 20 Gm/30 Ml Udc) 20 gm PO TID JAYNE; Protocol Stop: 02/18/25 21:59 Last Admin: 01/20/25 05:10 Dose: 20 gm Lidocaine HCl (Lidocaine Inj Pf 1% 5 Ml Vial) 3 ml INFL X1 ONE Stop: 01/20/25 13:41 Last Admin: 01/20/25 13:44 Dose: 3 ml Ondansetron HCl (Ondansetron Inj 2 Mg/Ml Inj 2 Ml) 4 mg IVP X1 ONE; Protocol Stop: 01/19/25 13:27 Last Admin: 01/19/25 14:02 Dose: 4 mg Assessment & Plan Plan 59y/o with PMH of liver cirrhosis, remote history of drug abuse, and cellulitis of left leg, presented to the hospital on 01/19/2025 due to lethargy and generalized weakness. Patient has been admitted for management of cirrhosis Nephrology has been consulted for management of MARTY. #Hepatorenal syndrome #VS Pre-renal MARTY -Upon admission, BUN 38 (Baseline of 15) , Cr 1.8 (Baseline of 1.1), eGFR 43 (Baseline: GFR >60) -Currently: BUN: 39, Cr:1.6, eGFR:49 -Patient's Cr has remained fairly high through out the stay and no improvement although 2 days of 50g Albumin. Patient did not have shock, No recent contrast or nephrotoxic drugs. In UA, Urine protein was negative, Urine RBC was 3. Based on the presentation above, with past medical history of cirrhosis, it is likely the patient is progressing towards hepatorenal syndrome. -However, Patient received paracentesis on 01/21 that drained 5600cc of fluid which might have contributed to lack of improvement to Cr levels. Plan: -Pending Renal Ultrasound -Pending Urine electrolyte, Urine creatinine ordered. -Continue on albumin treatment. -Midodrine ordered. Recommend Octreotide if suspect bleeding. Terlipressin is unavailable at the hospital. -Avoid nephrotoxins -Renally dose medication #Acute encephalopathy #Decompensated liver cirrhosis #Hyperkalemia #Hepatitis C #Failure to thrive #Thrombocytopenia -Management per Primary Hospitalist team Thank you for allowing us to participate in the care of your patient. Assessment and plan discussed with my attending physician Dr. Doron Forde (PGY-1)- Internal medicine resident Attending Provider Attestation/Addendum Patient seen and examined with resident physician Dr. Forde. Note reviewed, agree with findings and recommendations. Patient has large-volume paracentesis and 50 g of albumin was given. Despite albumin and gentle fluids no improvement in the renal function. Suspect he could have underlying HRS. Recommended midodrine, albumin, octreotide. Will follow his urine output and creatinine closely. Thank you Kalia for allowing me to participate in the care of Mr. Carlson
--- NOTE | 2025-01-21 15:04 | PC.NURSE ---
called Dr. Grady to renew central line order.
--- NOTE | 2025-01-21 15:38 | XR_ITS ---
Examination: Retroperitoneal ultrasound, complete Technique: Multiple high resolution grayscale images of the retroperitoneum obtained, including kidneys and bladder. Exam date and time:January 21, 2025, 1659 hrs. Indications: Acute renal insufficiency on laboratory examination today Findings: Right kidney 7.3 cm cortex 1.2 cm Left kidney 10.1 cm cortex 1.8 cm Multiple benign left renal cysts, the largest 14 mm Moderate renal parenchymal scar formation Extensive ascites Contracted urinary bladder Impression: Small right kidney Bilateral renal cortical thinning Moderate bilateral renal parenchymal scar formation No hydronephrosis
--- NOTE | 2025-01-21 15:59 | PD.RESPRO ---
Documentation for date of: 01/21/25 Subjective Subjective Interval history: Patient was seen and examined at bedside. No acute events took place overnight. alert, oriented, Patient ate only a bite of his hamburger yesterday and one half of an orange served for this morning breakfast. Patient had 4oz of emesis this AM. Patient had 4-5 pellet sized BM yesterday, and another earlier in the morning. Family will encourage the patient to drink and eat more to remove as much ammonia from his system as possible. Scheduled for paracentesis today. Exam Vital Signs Temp Pulse Resp BP Pulse Ox O2 Del Method 96.9 F 74 16 109/66 97 Room Air 01/21/25 12:00 01/21/25 12:00 01/21/25 12:00 01/21/25 12:00 01/21/25 12:01/21/25 12:00 Narrative Exam General: Patient is underweight, appears weak and uninterested in conversation, alert and oriented x3 HEENT: Normocephalic, atraumatic, EOMI, PERRLA, appears dry Chest: Clear to auscultate bilaterally, no wheezing or crackles CVS: Regular rate and rhythm, S1 and S2 heard without murmur Abdomen: Soft, mild distention, no tenderness, bowel sound present Neuro: Alert but confused, sleepy and unable to participate in exam fully, moving all his limbs, no obvious focal neurological deficit Extremities/skin: Bilateral extremity with chronic stasis skin changes, no edema Objective Labs 01/21/25 05:05 01/21/25 05:05 Labs: Laboratory Results - last 24 hr 01/20/25 01/21/25 01/21/25 15:01 05:05 11:45 WBC 8.7 8.1 RBC 4.25 L 4.04 L Hgb 11.7 L 11.2 L Hct 36.4 L 35.3 L MCV 86 87 MCH 27.5 27.7 MCHC 32.1 31.7 RDW Std Deviation 56.5 H 58.7 H Plt Count 57 L 62 L Neut % (Auto) 80 77 Lymph % (Auto) 11 11 [place] % (Auto) 6 9 Eos % (Auto) 2 3 Baso % (Auto) 1 1 Neut # (Auto) 7.0 6.2 Lymph # (Auto) 0.9 L 0.9 L [place] # (Auto) 0.6 0.7 Eos # (Auto) 0.2 0.2 Baso # (Auto) 0.0 0.0 Immature Gran # (Auto) 0.03 H 0.02 H Absolute Nucleated RBC 0.00 0.00 Immature Gran % 0 0 Nucleated RBC % 0 0 Sodium 136 137 Potassium 4.5 D 4.6 Chloride 107 107 Carbon Dioxide 21.7 20.6 Anion Gap 7 9 BUN 37 H 39 H Creatinine 1.6 H 1.6 H Estim Creat Clear Calc 31.5 L 44.8 L eGFR 49 L 49 L BUN/Creatinine Ratio 23 H 24 H Glucose 142 H 98 Calculated Osmolality 282 283 Calcium 9.0 8.8 Corrected Calcium 9.9 9.5 Phosphorus 4.1 4.6 Magnesium 2.2 2.1 Total Bilirubin 1.3 H 1.4 H AST 44 H 40 H ALT 36 32 Alkaline Phosphatase 100 94 Lactate Dehydrogenase 163 Total Protein 6.3 6.4 Albumin 2.9 L 3.1 L Globulin 3.4 3.3 Albumin/Globulin Ratio 0.9 L 0.9 L Triglycerides 49 Cholesterol 94 L LDL Cholesterol, Calc 54 HDL Cholesterol 30 L Cholesterol/HDL Ratio 3.1 L TSH 9.00 H Peritoneal Color Yellow Peritoneal Appearance Hazy Peritoneal WBC 274 Peritoneal RBC 93189 Periton Polynucl WBCs 11 Periton Mononucl WBCs 89 Peritoneal Tot Protein < 2 Peritoneal Albumin < 1.0 Peritoneal LDH 64 Peritoneal Glucose 113 Peritoneal Amylase 26 Hepatitis C Antibody Reactive A Misc Test Result Platelets confirmed Platelets confirmed Quality Measures Quality Measures none Assessment & Plan Assessment Current Active Medications: Generic Name Dose Route Start Last Admin Trade Name Freq PRN Reason Stop Dose Admin Acetaminophen 650 mg 01/19/25 18:59 Acetaminophen 325 Mg Tablet PO 02/18/25 18:58 Q6H PRN Fever >101.5 Patient Own Medication 1 ea/ 0 ea 01/20/25 09:00 01/20/25 10:30 IV Miscellaneous Supplies 1 PO 02/19/25 08:59 Not Given btl QDAY JAYNE On Hold: 01/20/25 09:41 Protocol Comment: CHANGED TO TABLETS. PATIENT STATES HE CANNOT TAKE ENTIRE MEDICATION AT ONE AND SIPS ON MED THROUGHOUT THE DAY . PATIENT OKAY WITH TAKING TABLETS. CALLED AND SPOKE WITH MD JOSH COX TO CHANGE TO TABLETS. SWITCHING ORDER TO 30 MG BID @ 0900,1400 AND A SEPARATE ORDER FOR 25 MG TO MAKE A TOTAL DAILY DOSE OF 85 MG Heparin Sodium (Porcine) 5,000 unit 01/19/25 21:00 01/21/25 09:28 Heparin Sod Inj 5000 Unit/Ml Vial SC 02/02/25 20:59 5,000 unit Q12HR JAYNE Administration Albumin Human 25 gm in 100 mls @ 100 mls/hr 01/19/25 23:15 01/21/25 11:52 Albuminex 25% Ivpb IV 02/18/25 23:14 100 mls/hr BID JAYNE Infusion Lactulose 30 gm 01/20/25 14:00 01/21/25 13:39 Lactulose Syrup 20 Gm/30 Ml Udc PO 02/19/25 13:59 30 gm TID JAYNE Administration Protocol Methadone HCl 25 mg 01/20/25 21:00 01/20/25 21:22 Methadone Hcl 10 Mg Tablet PO 01/25/25 20:59 25 mg HS JAYNE Administration Protocol Methadone HCl 30 mg 01/20/25 10:00 01/21/25 13:38 Methadone Hcl 10 Mg Tablet PO 01/25/25 09:59 30 mg BID@0900,1400 JAYNE Administration Protocol Midodrine 10 mg 01/21/25 14:15 Midodrine 5 Mg Tablet PO 02/20/25 14:14 BID JAYNE Ondansetron HCl 4 mg 01/19/25 18:59 01/21/25 05:30 Ondansetron Inj 2 Mg/Ml Inj 2 Ml IVP 02/18/25 18:58 4 mg Q6H PRN Administration NAUSEA OR VOMITING Protocol Plan 59 years old male with past medical history of liver cirrhosis presented with confusion, generalized weakness and decreased oral intake being admitted for management of acute hepatic encephalopathy, decompensated liver cirrhosis, MARTY and electrolyte imbalances. #Acute encephalopathy #Decompensated liver cirrhosis Patient has been confused since 3 days back, has been having decreased oral intake and not making sense while talking to the family He has been diagnosed with liver cirrhosis, undergoes scheduled paracentesis with radiology. Removed 7.6L on 01/08 and 10.2L on 12/26. Unclear cause, possibly secondary to hepatitis C, family stated patient only drank occasionally Has a bilirubin of 1.7, AST 68 ammonia 98, ammonia level was 187 on 01/17/2025. PT/INR was 12.6/1.2 Abdomen/pelvis CT from 11/28/2024 showed cirrhosis, esophageal and perigastric varices Liver ultrasound showed moderate ascites. B ctx were negative 2/2 bottles after 48h Increased lactulose 30 g 3 times daily, goal of 3-4 bowel movements per day Order placed for paracentesis Frequent neurochecks, swallow screen before restarting diet If mentation does not improve, we will consider brain imaging and neurology consult #AMRTY #Rule out hepatorenal syndrome Possibly prerenal in setting of poor oral intake, cannot rule out hepatorenal syndrome Patient has BUN/creatinine of 41/1.5, slightly improved compared to 38/1.8 on 01/17/2025, baseline appears to be 1.0-1.1 Patient received IV fluid in the ED Started on albumin 25 g twice daily, will closely monitor renal function for 48 hours Avoid nephrotoxins, strict ins and outs Ordered urine electrolytes and urine creatinine #Hyperkalemia Insetting of MARTY, no signs of active bleeding, stable hemoglobin Received temporizing measures and fluid in the ED We will monitor closely #Hepatitis C Patient noted to have hepatitis C antibody reactivity in 10/23/2020 We will obtain HCVRNA and hepatitis C antibody Patient will need further outpatient follow-up/treatment #Failure to thrive As per daughter patient has been having significant unintentional weight loss, temporal wasting Has been having poor oral intake Albumin is 3.1 We will obtain registered dietitian consult, encourage patient to have good oral intake. #Thrombocytopenia Patient noted to have platelets of 52, likely secondary to cirrhosis No signs of active bleeding, we will monitor closely Disposition: Telemetry for management of acute encephalopathy Peripheral line: PICC line CODE STATUS: Full code Diet: Regular diet DVT prophylaxis: Heparin SC Sharmaine Garces MD Attending Provider Attestation/Addendum I attest that I was physically present for the evaluation, physical examination, lab and imaging review of the patient with the residents. I discussed the case with the residents and agree with the findings and plans of care as documented above. Patient seen and examined at bedside this morning. Unable to have any lab draws or IV albumin infusion as he did not have any peripheral IV access despite being notified by kettle cleaner, RNs and ultrasound assistance. Discussed with the patient, agreed on PICC line placement for blood draws and IV therapies. Vital signs are stable. Patient appears more alert and awake, able to answer questions and follow commands appropriately. Did not have any bowel movement since admission, we will increase the dose of lactulose from 20 to 30 g 3 times daily. Kidney function did not show much improvement, BUN/creatinine of 37/1.6 today. Will continue with IV albumin infusion challenge, if fails to improve, we will consider nephrology consult. Patient noted to have slightly increased distention of his abdomen compared to yesterday. abdominal ultrasound yesterday showed moderate ascites we will obtain paracentesis. Blood cultures have been negative for more than 48 hours. Sharmaine Garces MD
[2025-01-21 16:05] LABS: Chloride,Urine Random < 20.0 mMol/L (55.0-125.0); Creatinine,Random Urine 134 mg/dL (30-125); Potassium,Urine Random 49 mMol/L (12-62); Sodium,Urine Random < 10.0 mMol/L (20.0-110.0)
--- NOTE | 2025-01-21 19:33 | PC.NURSE ---
INFORMED DR NUÑEZ OF MISSED DOSE OF MIDODRINE AT 14:15. PER MD, GIVE THE FIRST DOSE AND ADJUST SECOND TIME OF SECOND DOSE.
[2025-01-21] MEDS: MIDODRINE 5 MG TABLET 10 MG PO (20:05)
[2025-01-21] MEDS: METHADONE HCL 10 MG TABLET 25 MG PO (20:17)
[2025-01-21] MEDS: GABAPENTIN 100 MG CAPSULE PO (22:00)
[2025-01-22] VITALS (10 sets, daily range): BP systolic 91–106; BP diastolic 56–66; PULSE 67–83; RESP 14–97; TEMP 36.1–36.4; O2SAT 98–100; BMI 21.5
--- NOTE | 2025-01-22 02:51 | PC.NURSE ---
[email or web address] 01/22/25 [id number]
[2025-01-22] MEDS: LACTULOSE SYRUP 20 GM/30 ML UDC 30 GM PO ×2 (05:23→14:17)
[2025-01-22 06:02] LABS: Basophils # (Auto) 0.0 Thou/mm3 (0.0-0.2); Basophils % (Auto) 1 % (0-2.5); Eosinophils # (Auto) 0.2 Thou/mm3 (0.0-0.5); Eosinophils % (Auto) 5 % (0-10); Hematocrit 29.8 % (41.0-53.0); Hemoglobin 9.6 g/dL (13.5-16.0); Immature Granulocytes Auto 0.02 Thou/mm3 (0.00-0.00); Lymphocytes # (Auto) 0.9 Thou/mm3 (1.0-4.8); Lymphocytes % (Auto) 18 % (10-50); Mean Corpuscular HGB Conc 32.2 g/dl (31.0-37.0); Mean Corpuscular Hemoglobin 28.0 pg (25.0-35.0); Mean Corpuscular Volume 87 fL (80-100); Monocytes # (Auto) 0.5 Thou/mm3 (0.0-0.8); Monocytes % (Auto) 9 % (0-12); Neutrophils # (Auto) 3.3 Thou/mm3 (1.8-7.7); Neutrophils % (Auto) 67 % (37-80); Nucleated Red Blood Cell # 0.00 Thou/mm3 (0.00-0.00); Nucleated Red Blood Cell % 0 /100 WBC (0); RDW Standard Deviation 56.8 fL (35.1-43.9); Red Blood Count 3.43 Miln/mm3 (4.50-5.90); White Blood Count 4.9 Thou/mm3 (3.8-10.6)
[2025-01-22 06:06] LABS: Platelet Count 38 Thou/mm3 (140-440)
[2025-01-22 06:25] LABS: Alanine Aminotransferase 24 U/L (10-49); Albumin, Serum 3.0 gm/dL (3.4-4.8); Albumin/Globulin Ratio 1.2 (1.2-2.2); Alkaline Phosphatase 75 U/L (46-116); Anion Gap 7 (7-16); Aspartate Amino Transferase 34 U/L (0-34); BUN/Creatinine Ratio 21 Ratio (12-20); Bilirubin,Total 1.5 mg/dL (0.3-1.2); Blood Urea Nitrogen 29 mg/dL (9-23); Calcium 8.8 mg/dL (8.3-10.6); Calcium (Corrected) 9.6 mg/dL (8.5-10.1); Carbon Dioxide 23.9 mMol/L (20.0-31.0); Chloride 106 mMol/L (98-107); Creatinine (Component) 1.4 mg/dL (0.6-1.3); Estimated Creatinine Clearance 51.2 mL/min (>60); Globulin 2.6 gm/dL (2.3-3.5); Glucose 86 mg/dL (74-106); Magnesium 2.2 mg/dL (1.6-2.6); Osmolality,Calculated 278 (275-295); Phosphorous 3.1 mg/dL (2.4-5.1); Potassium 4.3 mMol/L (3.4-5.1); Sodium 137 mMol/L (136-145); Total Protein 5.6 gm/dL (5.7-8.2); eGFR 58 See Note
[2025-01-22 06:36] LABS: Slide Review Platelets confirmed
[2025-01-22] MEDS: MIDODRINE 5 MG TABLET 10 MG PO (08:17)
[2025-01-22] MEDS: ALBUMIN HUMAN-KJDA 25% IVPB 25 GM/100 ML BTL IV (08:19)
[2025-01-22] MEDS: METHADONE HCL 10 MG TABLET 30 MG PO ×2 (08:19→14:19)
--- NOTE | 2025-01-22 08:47 | ESPR_ITS ---
<Statement entered by Andres Atkinson MD - 01/22/25 18:25> Patient was seen and evaluated at bedside this morning. No acute overnight events. Patient showed improvement in his mental status A/O x3. Patient feels well and would like to be discharged today. Patient's hemoglobin did drop to 9.3, but on repeat was stable at 9.2 Patient will need follow-up with GI as outpatient and nephrology as well. Patient will be discharged home at this time as she is stable. Note reviewed and agree with resident's care plan as documented except as noted above. Case disclosed with attending Dr. Shirley Atkinson PGY2 Disclaimer: Even though this this note was dictated by speech recognition and even though it was carefully revised there may still be minor errors in finnish rubber due to voice recognition software. Documentation for date of: 01/22/25 Subjective Subjective Interval history: Overnight, no acute events per nursing; per patient and nephew, patient is feeling much better with improved mentation and has eaten full meals and had normal bowel movements. Exam Vital Signs Temp Pulse Resp BP Pulse Ox O2 Del Method 96.9 F 72 27 H 91/61 100 Room Air 01/22/25 04:00 01/22/25 08:17 01/22/25 04:00 01/22/25 08:17 01/22/25 04:00 01/22/25 04:00 Narrative Exam General: A/O x3, no acute distress, well-nourished, well-developed Eyes: PERRL, EOMI. Anicteric, vision grossly intact. Ears: No ear pain, no ear discharge, Hearing grossly intact. Nose: No nasal discharge. Mouth/Throat: Moist mucous membranes, no redness, no lesions. Neck: Neck supple, non-tender, no cervical lymphadenopathy. Lungs: Clear KATIE to auscultation and percussion, No accessory muscle use. Cardio: Normal S1/S2, regular rhythm, no murmurs, no JVD or carotid bruits. Abdomen: Soft, non-tender, no palpable masses, peristalsis present, no guarding or rebound. Extremities: Symmetrical, no significant deformities, trace edema both lower extremities, with venous stasis changes, non-tender, peripheral pulses presents. Skin: No rashes, no lesions, warm to touch. Neuro: No focal neurological deficits. Psych: Cooperative, appropriate mood and effect. Objective Labs 01/22/25 09:32 01/22/25 05:20 Labs: Laboratory Results - last 24 hr 01/21/25 01/21/25 01/21/25 05:05 11:45 15:30 WBC RBC Hgb Hct MCV MCH MCHC RDW Std Deviation Plt Count Neut % (Auto) Lymph % (Auto) [place] % (Auto) Eos % (Auto) Baso % (Auto) Neut # (Auto) Lymph # (Auto) [place] # (Auto) Eos # (Auto) Baso # (Auto) Immature Gran # (Auto) Absolute Nucleated RBC Immature Gran % Nucleated RBC % Sodium Potassium Chloride Carbon Dioxide Anion Gap BUN Creatinine Estim Creat Clear Calc eGFR BUN/Creatinine Ratio Glucose Calculated Osmolality Calcium Corrected Calcium Phosphorus Magnesium Total Bilirubin AST ALT Alkaline Phosphatase Total Protein Albumin Globulin Albumin/Globulin Ratio Ur Random Creatinine 134 H Ur Random Sodium < 10.0 L Ur Random Potassium 49 Ur Random Chloride < 20.0 L Peritoneal Color Yellow Peritoneal Appearance Hazy Peritoneal WBC 274 [place] [address] Periton Polynucl WBCs 11 Periton Mononucl WBCs 89 Peritoneal Tot Protein < 2 Peritoneal Albumin < 1.0 Peritoneal LDH 64 Peritoneal Glucose 113 Peritoneal Amylase 26 Misc Test Result Platelets confirmed 01/22/25 05:20 WBC 4.9 RBC 3.43 L Hgb 9.6 L Hct 29.8 L MCV 87 MCH 28.0 MCHC 32.2 RDW Std Deviation 56.8 H Plt Count 38 L D Neut % (Auto) 67 Lymph % (Auto) 18 [place] % (Auto) 9 Eos % (Auto) 5 Baso % (Auto) 1 Neut # (Auto) 3.3 Lymph # (Auto) 0.9 L [place] # (Auto) 0.5 Eos # (Auto) 0.2 Baso # (Auto) 0.0 Immature Gran # (Auto) 0.02 H Absolute Nucleated RBC 0.00 Immature Gran % 0 Nucleated RBC % 0 Sodium 137 Potassium 4.3 Chloride 106 Carbon Dioxide 23.9 Anion Gap 7 BUN 29 H Creatinine 1.4 H Estim Creat Clear Calc 51.2 L eGFR 58 L BUN/Creatinine Ratio 21 H Glucose 86 Calculated Osmolality 278 Calcium 8.8 Corrected Calcium 9.6 Phosphorus 3.1 Magnesium 2.2 Total Bilirubin 1.5 H AST 34 ALT 24 Alkaline Phosphatase 75 D Total Protein 5.6 L Albumin 3.0 L Globulin 2.6 Albumin/Globulin Ratio 1.2 Ur Random Creatinine Ur Random Sodium Ur Random Potassium Ur Random Chloride Peritoneal Color Peritoneal Appearance Peritoneal WBC Peritoneal RBC Periton Polynucl WBCs Periton Mononucl WBCs Peritoneal Tot Protein Peritoneal Albumin Peritoneal LDH Peritoneal Glucose Peritoneal Amylase Misc Test Result Platelets confirmed Quality Measures Quality Measures none Assessment & Plan Assessment Current Active Medications: Generic Name Dose Route Start Last Admin Trade Name Cruz PRN Reason Stop Dose Admin Acetaminophen 650 mg 01/19/25 18:59 Acetaminophen 325 Mg Tablet PO 02/18/25 18:58 Q6H PRN Fever >101.5 Patient Own Medication 1 ea/ 0 ea 01/20/25 09:00 01/20/25 10:30 IV Miscellaneous Supplies 1 PO 02/19/25 08:59 Not Given btl QDAY JAYNE On Hold: 01/20/25 09:41 Protocol Comment: CHANGED TO TABLETS. PATIENT STATES HE CANNOT TAKE ENTIRE MEDICATION AT ONE AND SIPS ON MED THROUGHOUT THE DAY . PATIENT OKAY WITH TAKING TABLETS. CALLED AND SPOKE WITH MD JOSH COX TO CHANGE TO TABLETS. SWITCHING ORDER TO 30 MG BID @ 0900,1400 AND A SEPARATE ORDER FOR 25 MG TO MAKE A TOTAL DAILY DOSE OF 85 MG Heparin Sodium (Porcine) 5,000 unit 01/19/25 21:00 01/22/25 08:20 Heparin Sod Inj 5000 Unit/Ml Vial SC 02/02/25 20:59 Not Given Q12HR JAYNE Albumin Human 25 gm in 100 mls @ 100 mls/hr 01/19/25 23:15 01/22/25 08:19 Albuminex 25% Ivpb IV 02/18/25 23:14 100 mls/hr BID JAYNE Administration Lactulose 30 gm 01/20/25 14:00 01/22/25 05:23 Lactulose Syrup 20 Gm/30 Ml Udc PO 02/19/25 13:59 30 gm TID JAYNE Administration Protocol Methadone HCl 25 mg 01/20/25 21:00 01/21/25 20:17 Methadone Hcl 10 Mg Tablet PO 01/25/25 20:59 25 mg HS JAYNE Administration Protocol Methadone HCl 30 mg 01/20/25 10:00 01/22/25 08:19 Methadone Hcl 10 Mg Tablet PO 01/25/25 09:59 30 mg BID@0900,1400 JAYNE Administration Protocol Midodrine 10 mg 01/21/25 14:15 01/22/25 08:17 Midodrine 5 Mg Tablet PO 02/20/25 14:14 10 mg BID JAYNE Administration Ondansetron HCl 4 mg 01/19/25 18:59 01/21/25 05:30 Ondansetron Inj 2 Mg/Ml Inj 2 Ml IVP 02/18/25 18:58 4 mg Q6H PRN Administration NAUSEA OR VOMITING Protocol Plan 59 years old male with past medical history of liver cirrhosis presented with confusion, generalized weakness and decreased oral intake being admitted for management of acute hepatic encephalopathy, decompensated liver cirrhosis, MARTY and electrolyte imbalances. #Acute encephalopathy #Decompensated liver cirrhosis #Hyperammonemia Patient confusion has improved markedly, with return of oral intake and bowel movements, and improved mentation per family; patient able to answer questions and respond to commands. Unclear cause, possibly secondary to hepatitis C, family stated patient only drank occasionally Has a bilirubin of 1.5 from 1.4, AST 34 from 40 and 44, ammonia 98 on 01/19/2025, ammonia level was 187 on 01/17/2025. PT/INR was 12.6/1.2 on 01/19/2025. Abdomen/pelvis CT from 11/28/2024 showed cirrhosis, esophageal and perigastric varices Liver ultrasound showed moderate ascites. B ctx were negative 2/2 bottles after 48h 01/21: Underwent paracentesis and 5.6L of pleural fluid was removed. Fluid studies show hazy, yellow fluid with 17,000 RBC, 274 WBC, and SAAG of >2.1 which is supportive of portal hypertension. Plan: Lactulose 30 g 3 times daily, goal of 3-4 bowel movements per day Frequent neurochecks #MARTY #Prerenal Azotemia Prerenal in setting of poor oral intake, and untreated (excluding paracentesis) cirrhosis Patient has BUN/creatinine of 29/1.4, improved compared to 38/1.8 on 01/17/2025, baseline appears to be 1.0-1.1 Patient received IV fluid in the ED Urine creatinine- 134; Urine sodium- < 10(L), Urine Potassium- 49, Urine chloride- <20 (L) Plan: nephrology consulted, appreciate recs. Started on albumin 25 g twice daily, will closely monitor renal function for 48 hours As renal function has improved with albumin, not likely hepatorenal syndrome. midodrine PO 10mg bid Avoid nephrotoxins, strict ins and outs #Hyperkalemia Insetting of MARTY, no signs of active bleeding, stable hemoglobin Received temporizing measures and fluid in the ED We will monitor closely #Hepatitis C Patient noted to have hepatitis C antibody reactivity (01/20) pending HCVRNA and hepatitis C antibody Patient will need further outpatient follow-up/treatment #Failure to thrive As per daughter patient has been having significant unintentional weight loss, temporal wasting Oral intake improved significantly Albumin is 3.0 from 3.1 We will obtain registered dietitian consult. #Thrombocytopenia Platelets are 38 from 62, likely secondary to cirrhosis No signs of active bleeding, we will monitor closely #Chronic pain on methadone PO 30mg bid Disposition: Telemetry for management of acute encephalopathy Peripheral line: PICC line CODE STATUS: Full code Diet: Regular diet DVT prophylaxis: Heparin SC This case was discussed with my attending physician, Dr. Watson, and senior resident, Dr. Atkinson. Maninder Bhakta MD-PhD PGY1 Attending Provider Attestation/Addendum I have examined the patient, reviewed labs and imaging findings, discussed the case with the resident(s), and reviewed entered orders. I agree with the plan of care as outlined in this note. Dr. Shirley MD
[2025-01-22 09:52] LABS: Hematocrit 28.7 % (41.0-53.0); Hemoglobin 9.3 g/dL (13.5-16.0)
--- NOTE | 2025-01-22 11:02 | PD.NEPHPROG ---
Documentation for date of: 01/22/25 Subjective Subjective Interval history: Reason for consult: MARTY History of present illness: History of Present Illness: 59y/o with PMH of liver cirrhosis, remote history of drug abuse, and cellulitis of left leg, presented to the hospital on 01/19/2025 due to lethargy and generalized weakness. The symptom started last (01/16) where he repeatedly became weak and lethargic. Before coming to the hospital he was found unresponsive by his family. Patient has been underogoing therapeutic paracentesis every 2 weeks since his diagnosis of cirrhosis. Notably, he has previously experienced increased lethargy prior to scheduled sesssions, propting a decrease in interval to weekly paracentesis. However, htis time his paracentesis interval was extrended to two weeks, during which his lethargy progressively worsenend, leading to his presentation to the ER. Patient has been admitted for management of cirrhosis Nephrology has been consulted for management of MARTY. ED course: In the ED, initial vitals were within normal limits, blood pressure on softer side, 92/59 this evening. Saturating well on room air. EKG was done, shows sinus rhythm and low voltage. Lab results show platelets of 52, potassium 5.5, BUN/creatinine 41/1.5, baseline appears to be around 1.0-1.1 also has total bilirubin of 1.7, AST 68, ammonia 98, LDH 296, albumin 3.1. Urinalysis did not show any signs of infection. Drug screen were positive for opiates. Patient also noted to have positive hepatitis C antibody studies in 2020. She received ondansetron, calcium gluconate, insulin, D5 W, lactulose and LR in the ED. After examination of the patient and review of the clinical data I feel that this patient needs admission to the hospital for further treatment/evaluation of hepatic encephalopathy, decompensated liver cirrhosis, MARTY and hyperkalemia. Past medical history: Liver cirrhosis Social history: Lives with his mother, has history of smoking, used to drink occasionally, used to use illicit drugs, cocaine, including IV route 01/21/2025: Labs reviewed and patient examined at the bedside. Upon admission, BUN 38 (Baseline of 15) , Cr 1.8 (Baseline of 1.1), eGFR 43 (Baseline: GFR >60) and Currently: BUN: 39, Cr:1.6, eGFR:49. Patient's Cr has remained fairly high through out the stay and no improvement although 2 days of 25g Albumin. Patient did not have shock, No recent contrast or nephrotoxic drugs. In UA, Urine protein was negative, Urine RBC was 3. Based on the presentation above, with past medical history of cirrhosis, it is likely the patient progressing towards hepatorenal syndrome. However, Patient received paracentesis on 01/21 that drained 5600cc of fluid which might have contributed to lack of improvement to Cr levels. Will need to order renal Ultrasound to make sure no structural kidney injury. Urine electrolyte, Urine creatinine ordered. Continue on albumin treatment. Midodrine ordered. Recommend Octreotide if suspect bleeding. Terlipressin is unavailable at the hospital. Patient is alert and awake. Complains of mild generalized abdominal pain. Denies chest pain, palpation, SOB, N/V, fevers or chills. 01/22/2025 patient currently seen in telemetry. Resting comfortably. Terry?'s nephew at bedside. Urine output seems to be acceptable. Still with some ascites. Creatinine improved to 1.4. Patient seems to have prerenal azotemia. Review of Systems Review of Systems Narrative Review of Systems: CONSTITUTIONAL: Patient denies any fever, chills. HEENT: Denies any visual disturbances or hearing problems. CARDIOVASCULAR: Patient denies any chest pain, swelling in the lower extremities. PULMONARY: Patient complaining of shortness of breath. GASTROINTESTINAL: Complaining of abdominal distention. GENITOURINARY: Patient denies any urinary symptoms of burning or frequency or hematuria, denies any form in the urine. SKIN: Denies any rash. MUSCULOSKELETAL: Denies any muscular skeletal problems of joint pains. NEUROLOGICAL: Denies any neurological problems of strokes, seizures or confusion. Denies any memory problems. PSYCHIATRIC: Denies any depression or anxiety. LYMPHATICS : No lymphadenopathy Exam Vital Signs Temp Pulse Resp BP Pulse Ox O2 Del Method 36.3 C 75 15 91/61 98 Room Air 01/22/25 08:00 01/22/25 09:01 01/22/25 09:01 01/22/25 08:17 01/22/25 08:00 01/22/25 08:00 Narrative Exam General: No acute distress, AAO x3, elderly, frail Eye: PERRL, EOMI, normal conjunctiva, no scleral icterus HENT: Normocephalic, atraumatic, hearing intact to conversation at normal volume, moist oral mucosa Neck: Supple, non-tender, no JVD, no lymphadenopathy Lungs: Non-labored respirations, symmetric chest rise, Clear to auscultate bilaterally, No wheezing, rhonchi, crackles Heart: Peripheral pulses intact bilaterally, Regular Rate and Rhythm. Abdomen: Soft, non-tender, non-distended, no palpable masses ++ ascites small umbilical hernia noted Musculoskeletal: No cyanosis or edema, No visible joint swelling, left knee with residual hyperpigmentation secondary to prior cellulitis. Skin: Skin is warm, dry, no rashes or lesions. Psychiatric: Cooperative, appropriate mood and affect, Awake and alert, not agitated Neuro: Cranial nerves II-XII grossly intact. Sensations intact to light touch. Objective Labs 01/22/25 09:32 01/22/25 05:20 Labs: Laboratory Results - last 24 hr 01/21/25 01/21/25 01/21/25 05:05 11:45 15:30 WBC RBC Hgb Hct MCV MCH MCHC RDW Std Deviation Plt Count Neut % (Auto) Lymph % (Auto) [place] % (Auto) Eos % (Auto) Baso % (Auto) Neut # (Auto) Lymph # (Auto) [place] # (Auto) Eos # (Auto) Baso # (Auto) Immature Gran # (Auto) Absolute Nucleated RBC Immature Gran % Nucleated RBC % Sodium Potassium Chloride Carbon Dioxide Anion Gap BUN Creatinine Estim Creat Clear Calc eGFR BUN/Creatinine Ratio Glucose Calculated Osmolality Calcium Corrected Calcium Phosphorus Magnesium Total Bilirubin AST ALT Alkaline Phosphatase Total Protein Albumin Globulin Albumin/Globulin Ratio Ur Random Creatinine 134 H Ur Random Sodium < 10.0 L Ur Random Potassium 49 Ur Random Chloride < 20.0 L Peritoneal Color Yellow Peritoneal Appearance Hazy Peritoneal WBC 274 [place] [address] Periton Polynucl WBCs 11 Periton Mononucl WBCs 89 Peritoneal Tot Protein < 2 Peritoneal Albumin < 1.0 Peritoneal LDH 64 Peritoneal Glucose 113 Peritoneal Amylase 26 Misc Test Result Platelets confirmed 01/22/25 01/22/25 05:20 09:32 WBC 4.9 RBC 3.43 L Hgb 9.6 L 9.3 L Hct 29.8 L 28.7 L MCV 87 MCH 28.0 MCHC 32.2 RDW Std Deviation 56.8 H Plt Count 38 L D Neut % (Auto) 67 Lymph % (Auto) 18 [place] % (Auto) 9 Eos % (Auto) 5 Baso % (Auto) 1 Neut # (Auto) 3.3 Lymph # (Auto) 0.9 L [place] # (Auto) 0.5 Eos # (Auto) 0.2 Baso # (Auto) 0.0 Immature Gran # (Auto) 0.02 H Absolute Nucleated RBC 0.00 Immature Gran % 0 Nucleated RBC % 0 Sodium 137 Potassium 4.3 Chloride 106 Carbon Dioxide 23.9 Anion Gap 7 BUN 29 H Creatinine 1.4 H Estim Creat Clear Calc 51.2 L eGFR 58 L BUN/Creatinine Ratio 21 H Glucose 86 Calculated Osmolality 278 Calcium 8.8 Corrected Calcium 9.6 Phosphorus 3.1 Magnesium 2.2 Total Bilirubin 1.5 H AST 34 ALT 24 Alkaline Phosphatase 75 D Total Protein 5.6 L Albumin 3.0 L Globulin 2.6 Albumin/Globulin Ratio 1.2 Ur Random Creatinine Ur Random Sodium Ur Random Potassium Ur Random Chloride Peritoneal Color Peritoneal Appearance Peritoneal WBC Peritoneal RBC Periton Polynucl WBCs Periton Mononucl WBCs Peritoneal Tot Protein Peritoneal Albumin Peritoneal LDH Peritoneal Glucose Peritoneal Amylase Misc Test Result Platelets confirmed Assessment & Plan Additional Assessment & Plan Additional Plan: 59y/o with PMH of liver cirrhosis, remote history of drug abuse, and cellulitis of left leg, presented to the hospital on 01/19/2025 due to lethargy and generalized weakness. Patient has been admitted for management of cirrhosis Nephrology has been consulted for management of MARTY. # Acute renal failure most likely related to prerenal azotemia. Doubt hepatorenal syndrome. Creatinine improving with IV fluids, albumin. -Upon admission, BUN 38 (Baseline of 15) , Cr 1.8 (Baseline of 1.1), eGFR 43 (Baseline: GFR >60) -Currently: BUN: 39, Cr:1.6, eGFR:49 -Patient's Cr has remained fairly high through out the stay and no improvement although 2 days of 50g Albumin. Patient did not have shock, No recent contrast or nephrotoxic drugs. In UA, Urine protein was negative, Urine RBC was 3. -However, Patient received paracentesis on 01/21 that drained 5600cc of fluid which might have contributed to lack of improvement to Cr levels. Plan: - renal Ultrasound did not show any hydronephrosis r -Continue on albumin treatment. -Midodrine ordered.r -Avoid nephrotoxins -Renally dose medication #Acute encephalopathy-back to baseline #Decompensated liver cirrhosis-stable #Hyperkalemia-better #Hepatitis C #Thrombocytopenia -Management per Primary Hospitalist team Patient needs to follow-up with me in 1 to 2 weeks Quality - progress note Quality Measures Quality Measures: VTE prophylaxis Reason for Continued Stay Reason for Continued Stay: further monitoring
--- NOTE | 2025-01-22 13:42 | ESDS_ITS ---
Planned Discharge Date 01/22/25 DS: Providers Provider Date of admission: 01/19/25 18:59 Primary care physician: Korina Bashir NP Admitting Provider: Sharmaine Garces MD Attending Provider on Admission: Kalia Watson MD Consults: 01/19/25 19:07 Referral Registered Dietitian Routine Comment: 01/19/25 19:17 Referral Physical Therapy Routine Comment: Physician Instructions: 01/21/25 13:50 Consult to Nephrology Routine Comment: Consulting Provider: Myla Sal Attending Provider on DC: Kalia Watson MD Discharging Provider: Kalia Watson MD DS: Diagnosis Problem List Completed Was Problem List Reviewed/Reconciled?: Yes Hospital Course Hospital Course Hospital course: Hospital Course Patient is a 59 years old male presented to the ED with complaint of generalized weakness, decreased oral intake and altered mental status. Patient appears tired and not able to carry out full conversation; most of the HPI obtained from his daughter at bedside. Patient has been losing weight, daughter thinks he has almost lost half of his weight within the last 6 months. Since this Monday, patient has become weaker, has been sleeping most of the day, complaining of abdominal discomfort, has been having decreased oral intake, mostly eating pudding and fluid only. He also appears confused and is not making sense while having conversation with her Monday and today, today being worse. He is also having nausea and vomiting. Denies fever, chills, shortness of breath, hematemesis, hematochezia or black tarry stool. In the ED, initial vitals were within normal limits, blood pressure on softer side, 92/59 this evening. Saturating well on room air. EKG was done, shows sinus rhythm and low voltage. Lab results show platelets of 52, potassium 5.5, BUN/creatinine 41/1.5, baseline appears to be around 1.0-1.1 also has total bilirubin of 1.7, AST 68, ammonia 98, LDH 296, albumin 3.1. Urinalysis did not show any signs of infection. Patient also noted to have positive hepatitis C antibody studies in 2020. He received ondansetron, calcium gluconate, insulin, D5 W, lactulose and LR in the ED. Patient admitted for decompensated cirrhosis with hepatic encephalopathy. Underwent paracentesis and removed 5600 cc of pleural fluid and placed on albumin 25 g BID. Nephrology consulted for potential hepatorenal syndrome, which was ruled out; patient given octreotide for potential hepatorenal syndrome and midodrine for hypotension. Studies of paracentesis fluid are supportive of transudative effusion secondary to portal hypertension. Vital signs stable, hemoglobin stable, and renal function improving back to baseline with albumin replacement and fluid replaced. By Day 4, patient was feeling much better with improved mentation and has eaten full meals and had normal bowel movements. The patient is stable, ambulatory, afebrile and tolerating Per oral medications at the time of discharge. The patient understood and agreed to the treatment plan. Discharge Instructions Please follow up with your primary care physician in the next 5 days, you will need to establish care with a Jointer Operator and Volunteer Services Director. You might need referrals from your primary doctor for specialist appointment. Please follow up with your pc maintenance technician within 5-7 days upon discharge. You have been started on midodrine 10mg three times a day. Do not take if systolic blood pressure above 140. You have been started on lactulose 20mg three times a day. Avoid NSAIDs like ibuprofen and your daily max dose of acetaminophen is 3 grams per day. Avoid all other illicit drugs or smoking. Please come back to the ER if symptoms persist or worsen. Problem list #Acute encephalopathy #Decompensated liver cirrhosis #Hyperammonemia #MARTY #Prerenal Azotemia #Hyperkalemia #Hepatitis C #Failure to thrive #Thrombocytopenia #Chronic pain Senior resident attestation: Patient evaluated and examined at the bedside, plan of care discussed with rest of the team including my attending physician, except as noted. Quresh PGY3 Status at Discharge Overall status at discharge: patient is progressing back to baseline Time Spent with Patient Time attestation: Total time spent providing and/or coordinating discharge services: Time spent: Greater than 30 minutes Exam Vital Signs Temp Pulse Resp BP Pulse Ox O2 Del Method 97.5 F 67 20 98/56 L 98 Room Air 01/22/25 12:00 01/22/25 12:00 01/22/25 12:00 01/22/25 12:00 01/22/25 12:00 01/22/25 12:00 Narrative Exam General: A/O x3, no acute distress, emaciated, multiple skin tattoos Lungs: Clear KATIE to auscultation and percussion, No accessory muscle use. Cardio: Normal S1/S2, regular rhythm, no murmurs, no JVD or carotid bruits. Abdomen: Soft, non-tender, but distended protuberant abdomen, no palpable masses, peristalsis present, no guarding or rebound. Extremities: Symmetrical, no significant deformities, trace edema both lower extremities, with venous stasis changes. Psych: Cooperative, appropriate mood and effect. Discharge Plan Plan Patient Disposition: Home w/HOME HEALTH Patient condition on transfer: Stable Care Plan Goals: Please follow up with your primary care physician in the next 5 days, you will need to establish care with a Jointer Operator and Volunteer Services Director. You might need referrals from your primary doctor for specialist appointment. Please follow up with your pc maintenance technician within 5-7 days upon discharge. You have been started on midodrine 10mg three times a day. Do not take if systolic blood pressure above 140. You have been started on lactulose 20mg three times a day. Avoid NSAIDs like ibuprofen and your daily max dose of acetaminophen is 3 grams per day. Avoid all other illicit drugs or smoking. Please come back to the ER if symptoms persist or worsen. Prescriptions/Referrals Prescriptions/Med Rec: New midodrine 10 mg tablet 10 mg PO TID MDD 30 mg Qty: 45 0RF Rx Instructions: do not give last dose of day after 6PM or within 4 hrs of bedtime. Hold if systolic blood pressure 140 or above. famotidine 40 mg tablet 40 mg PO QDAY Qty: 30 0RF Xifaxan 550 mg tablet 550 mg PO BID Qty: 60 0RF lactulose 10 gram/15 mL solution 20 g PO TID Qty: 3000 0RF Continued methadone [Methadose] 10 mg/mL concentrate 85 mg PO QDAY Referrals: Marquise Santamaria MD [Physician, Gastroenterology] Korina Bashir NP [Primary Care Provider] Myla Sal MD [Physician, Nephrology] Patient/Caregiver Discharge Instructions Other Discharge Activity Instructions:: Please follow up with your primary care physician in the next 5 days, you will need to establish care with a Jointer Operator and Volunteer Services Director. You might need referrals from your primary doctor for specialist appointment. Please follow up with your pc maintenance technician within 5-7 days upon discharge. You have been started on midodrine 10mg three times a day. Do not take if systolic blood pressure above 140. You have been started on lactulose 20mg three times a day. Avoid NSAIDs like ibuprofen and your daily max dose of acetaminophen is 3 grams per day. Avoid all other illicit drugs or smoking. Please come back to the ER if symptoms persist or worsen. Education Materials: Paracentesis Dc, Understanding Cirrhosis, Discharge Instructions for ... Print Language: Divehi Stand Alone Forms: Leandra Award Info., Patient Portal Info Letter Discharge Order Discharge Orders: Discharge (Routine); Ordered 01/22/25 Ordered By: Wilbert Ford Quality Discharge Quality Measures none MD Attestestation MD Attestation I have examined the patient, reviewed labs and imaging findings, discussed the case with the resident(s), and reviewed entered orders. I agree with the plan of care as outlined in this note. Time Spent: [address] Shirley MD
--- NOTE | 2025-01-22 15:03 | PC.CC ---
Addendum entered by William Moreira RN 01/22/25 16:00: comp care accepted and booked, soc 01/30 - trying to see sooner. Original Note: [facility] ref sent out, waiting for responses
--- NOTE | 2025-01-22 17:23 | PC.NURSE ---
Patient stayed 1 hour post PICC line removal. No signs and symptoms of bleeding noted. Dressing intact. Patient aware to monitor site for signs of bleeding and infection.
[2025-01-23 19:49] LABS: HCV RNA, PCR 313000 IU/mL
[2025-01-24 06:23] LABS: HCV RNA, PCR Log IU 5.50 Log IU/mL
== END 2025-01-22 17:23 | disposition home health service (06) ==
LOC: SERX 18:47 → SERHOLD 20:06 → S2NX 23:59
PROVIDERS: Internal Medicine; Registered Nurse General Practice; Student in an Organized Health Care Education/Training Program; Admitting Provider Student in an Organized Health Care Education/Training Program; Emergency Provider Emergency Medicine; PCP Nurse Practitioner Family; Visit Provider Student in an Organized Health Care Education/Training Program
DX: K74.60 Unspecified cirrhosis of liver (principal); K76.82 Hepatic encephalopathy; N17.9 Acute kidney failure, unspecified; E87.5 Hyperkalemia; Z87.891 Personal history of nicotine dependence; B19.20 Unspecified viral hepatitis C without hepatic coma; R62.7 Adult failure to thrive; R18.8 Other ascites; D69.59 Other secondary thrombocytopenia; G89.29 Other chronic pain; K76.6 Portal hypertension; F11.20 Opioid dependence, uncomplicated; K72.90 Hepatic failure, unspecified without coma
CPT/HCPCS: 36415; 76705; 76770; 80053; 80061; 80307; 81001; 82042; 82140; 82150; 82436; 82570; 82945; 83036; 83615; 83735; 83880; 84100; 84132; 84133; 84157; 84300; 84443; 84484; 85014; 85018; 85025; 85610; 85730; 86803; 87522; 89051; 93005; 93306; 96372; 96374; 96376; 97162; 99284; A4649; C1729; C1894; J0612; J1642; J1644; J1815; J2405; J3490; J7050; J7120; P9047; A9270; P0947

== ENCOUNTER → 2025-01-30 | Outpatient (CLI) | payer MEDICAID, SELFPAY ==
--- NOTE | 2025-01-30 13:54 | XR_ITS ---
Examination: Abdomen sonogram, Limited Date and time of exam: January 30, 2025, 1410 hours INDICATIONS: Cirrhosis increasing ascites this week Technique: Real-time lema scale transabdominal sonographic images of the upper abdomen obtained. Findings: Minimal ascitic fluid IMPRESSION: Minimal ascitic fluid
== END | disposition home or self-care (01) ==
PROVIDERS: PCP Nurse Practitioner Family; Referring Provider Nurse Practitioner Family; Visit Provider Nurse Practitioner Family
DX: K70.31 Alcoholic cirrhosis of liver with ascites (principal)
CPT/HCPCS: 76705